=== PATIENT | female | born 1950 | race Caucasian/White ===

== ENCOUNTER → 2016-10-26 | Outpatient (CLI) | payer MEDICARE, OTHER ==
[~2016-10-26] MED LIST: ASPI-983 PO; ATOR10TA66 PO; CARV3.12 PO; CHOL10007 PO; GUAI5SYR PO; HYDR-3454 PO; IPRA3AMP IH; KRIL1CAP18 PO; LEVO25TA5 PO; OMEG-141 PO; PANT40TA2 PO; TICA90TA PO
--- NOTE | 2016-10-27 12:31 | ECHOCARDIOGRAPHY REPORT ---
DATE OF SERVICE: 10/26/2016 PROCEDURE: 2D Echocardiogram MEASUREMENT: LVID end diastolic 4.7, IVS thickness 0.8, LVPW thickness 0.9, left atrial diameter 2.6. Ejection fraction 50%. FINDINGS: 1. Technical quality is good. 2. The left ventricle is normal in size with subtle hypokinesia noted at the mid to apical anterior septum. Systolic function is preserved. Estimated ejection fraction 50%, slight improvement compared to the study of 2015, diastolic dysfunction is suggested by Doppler. 3. The left atrium is normal in size. No clot or thrombus were seen within the left atrium. 4. The right atrium and right ventricle are normal in size. No clot or thrombus were seen within the right side. 5. Mitral valve is normal in morphology with mild mitral regurgitation noted by color Doppler flow. No mitral valve prolapse. No mitral valve stenosis. 6. Aortic valve is trileaflet with normal opening and closing pattern, no significant aortic stenosis or regurgitation was seen. 7. Tricuspid valve is normal in morphology with mild tricuspid regurgitation noted by color Doppler flow. Doppler across the tricuspid valve estimated pulmonary artery pressure of 5+ right atrial pressure. 8. Pulmonic valve is functioning normally. 9. No pericardial effusion. IN CONCLUSION: 1. Normal left ventricular size with subtle hypokinesia at the mid to apical anterior septum, systolic function is preserved. Estimated ejection fraction 50%, diastolic dysfunction is suggested by Doppler, slight improvement compared to the study of 2015. 2. Mild mitral and tricuspid regurgitation. 3. Estimated pulmonary artery pressure of 10 to 15 mmHg. Job ID: [id number] DocumentID: [id number] Dictated Date: 10/27/2016 08:02:12 [employer] Date: 10/27/2016 08:54:42 Dictated By: PHAN MALONE MD
== END ==
LOC: CARD 11:39
PROVIDERS: ATTEND Physician Assistant
DX: I25.10 Atherosclerotic heart disease of native coronary artery without angina pectoris (principal); I11.0 Hypertensive heart disease with heart failure; E78.2 Mixed hyperlipidemia; I50.1 Left ventricular failure, unspecified; I08.1 Rheumatic disorders of both mitral and tricuspid valves
CPT/HCPCS: 93306

== ENCOUNTER 2016-12-17 18:43 | Emergency (ER) | payer MEDICARE, OTHER ==
[~2016-12-17] VITALS: Ht 147.3 cm; Wt 78.0 kg
--- NOTE | 2016-12-17 20:37 | ED Back Pain ---
General Chief Complaint: Back Problems Stated Complaint: BACK/STOMACH/CHEST PAIN Nursing Triage Note: RIGHT FLANK PAIN RADIATING TO ABDOMEN SINCE 0430 12/17/16 Nursing Sepsis Screen: No Definite Risk Source of Information: Patient, RN Notes Reviewed Exam Limitations: No Limitations History of Present Illness Time Seen by Provider: 20:20 Initial Comments Patient presents c/ c/o right flank pain since 04:30. Awoke @ that time and noted it. It has been constant and radiates around to RLQ and epigastrium. Described as sharp and rates it 8/10. When asked it has ever had anything like this, she stated once c/ her gallbladder and once c/ her ID. (+) nausea, but no vomiting. Thought it could be constipation and took a stool softner and had small BM s/ any changes in pain. No known fever. Location: Other (see above) Timing/Duration: 12-24 Hours Severity: Moderate Pain/Injury Location: Back (right flank) Radiation: Other (RUQ/Epigastric area) Method of Injury: Unknown Modifying Factors: Improves With Other (nothing) Associated Symptoms: denies symptoms Allergies and Home Medications Allergies Coded Allergies: Sulfa (Sulfonamide Antibiotics) (Verified Allergy, Unknown, 02/27/15) erythromycin base (Unverified Allergy, Unknown, 09/24/15) nitrous oxide (Unverified Allergy, Unknown, 09/24/15) procaine (Unverified Allergy, Unknown, 09/24/15) Home Medications Aspirin 81 Mg Tablet.dr, 81 MG PO DAILY, (Reported) Atorvastatin Calcium 10 Mg Tablet, 10 MG PO HS, (Reported) Cholecalciferol (Vitamin D3) 1,000 Unit Capsule, 1,000 UNIT PO DAILY, (Reported) Ipratropium/Albuterol Sulfate 3 Ml Ampul.neb, 3 ML IH QID, (Reported) Levothyroxine Sodium 25 Mcg Tablet, 25 MCG PO DAILY, (Reported) Mentor-3/Dha/Epa/Fish Oil 1 Each Capsule, 1 CAP PO BID, (Reported) Pantoprazole Sodium 40 Mg Tablet.dr, 40 MG PO DAILY, (Reported) Ticagrelor 90 Mg Tablet, 90 MG PO BID, (Reported) Constitutional: see HPI Gastrointestinal: see HPI, abdominal pain (RUQ; epigastric), nausea : No Musculoskeletal: see HPI, back pain (right flank) All Other Systems Reviewed Negative Unless Noted: Yes (Negative excepted noted.) Past [id number]-Mmokxk Hx Patient Social History Alcohol Use: Denies Use Recreational Drug Use: No Smoking Status: Never a Smoker Former Smoker/When Quit: Feb 28, 2015 2nd Hand Smoke Exposure: No Recent Foreign Travel: No Contact w/Someone Who Travel: No Recent Infectious Disease Expo: No Recent Hopitalizations: No Immunizations Up To Date Tetanus Booster (TDap): Unknown Date of Pneumonia Vaccine: Feb 28, 2015 Date of Influenza Vaccine: Feb 28, 2015 Seasonal Allergies Seasonal Allergies: No Surgeries HX Surgeries: Yes (5 bypass) Surgeries: Cardiac, CABG, Coronary Stent, Gallbladder, Tubal Ligation Respiratory Hx Respiratory Disorders: Yes Respiratory Disorders: COPD Cardiovascular Hx Cardiac Disorders: Yes Cardiac Disorders: Coronary Artery Disease, Heart Attack, High Cholesterol Neurological Hx Neurological Disorders: No Neurological Disorders: Stroke Reproductive System : No Hx Reproductive Disorders: No [employer] History: Tubal Ligation, Menopausal Genitourinary Hx Genitourinary Disorders: No Gastrointestinal Hx Gastrointestinal Disorders: No Musculoskeletal Hx Musculoskeletal Disorders: No Endocrine Hx Endocrine Disorders: No HEENT HX ENT Disorders: No Cancer Hx Cancer: No Psychosocial Hx Psychiatric Problems: No Integumentary HX Skin/Integumentary Disorder: No Blood Transfusions Hx Blood Disorders: No Adverse Reaction to a Blood Tr: No Family Medical History Family Medial History: Cardiovascular disease 19 FATHER Physical Exam Vital Signs Vital Sign - Last 12Hours 12/17/16 19:52 Temp 98.9 Pulse 79 Resp 16 B/P (MAP) 145/68 Pulse Ox 97 O2 Delivery Room Air Capillary Refill : Less Than 3 Seconds General Appearance: WD/WN, Obese, Other (appears uncomfortable) Cardiovascular: Regular Rate, Rhythm Respiratory: No Respiratory Distress Gastrointestinal: Soft Back: CVA Tenderness (R) Neurologic/Psychiatric: Alert, Oriented x3, No Motor/Sensory Deficits, image consultant II- XII Norm as Tested Skin: Warm/Dry, No Rash Progress/Results/Core Measures Results/Orders Lab Results Laboratory Tests Test 12/17/16 20:25 12/17/16 20:48 Range/Units Urine Color YELLOW Urine Clarity CLEAR Urine pH 5 5-9 Urine Specific [place] 1.020 1.016-1.022 Urine Protein NEGATIVE NEGATIVE Urine Glucose (UA) NEGATIVE NEGATIVE Urine Ketones NEGATIVE NEGATIVE Urine Nitrite NEGATIVE NEGATIVE Urine Bilirubin NEGATIVE NEGATIVE Urine Urobilinogen NORMAL NORMAL MG/DL Urine Leukocyte Esterase NEGATIVE NEGATIVE Urine RBC (Auto) 4+ H NEGATIVE Urine RBC 0-2 /HPF Urine WBC 2-5 /HPF Urine Squamous Epithelial Cells 25-50 H /HPF Urine Renal Epithelial Cells NONE /HPF Urine Crystals NONE /LPF Urine Bacteria FEW H /HPF Urine Casts PRESENT /LPF Urine Hyaline Casts RARE /LPF Urine Mucus NEGATIVE /LPF Urine Culture Indicated NO White Blood Count 9.7 4.3-11.0 10^3/uL Red Blood Count 4.08 L 4.35-5.85 10^6/uL Hemoglobin 12.1 11.5-16.0 G/DL Hematocrit 38 35-52 % Mean Corpuscular Volume 93 80-99 FL Mean Corpuscular Hemoglobin 30 25-34 PG Mean Corpuscular Hemoglobin Concent 32 32-36 G/DL Red Cell Distribution Width 13.7 10.0-14.5 % Platelet Count 349 130-400 10^3/uL Mean Platelet Volume 9.6 7.4-10.4 FL Neutrophils (%) (Auto) 61 42-75 % Lymphocytes (%) (Auto) 30 12-44 % Monocytes (%) (Auto) 7 0-12 % Eosinophils (%) (Auto) 3 0-10 % Basophils (%) (Auto) 0 0-10 % Neutrophils # (Auto) 5.9 1.8-7.8 X 10^3 Lymphocytes # (Auto) 2.9 1.0-4.0 X 10^3 Monocytes # (Auto) 0.7 0.0-1.0 X 10^3 Eosinophils # (Auto) 0.3 0.0-0.3 10^3/uL Basophils # (Auto) 0.0 0.0-0.1 10^3/uL Sodium Level 139 135-145 MMOL/L Potassium Level 4.0 3.6-5.0 MMOL/L Chloride Level 107 98-107 MMOL/L Carbon Dioxide Level 20 L 21-32 MMOL/L Anion Gap 12 5-14 MMOL/L Blood Urea Nitrogen 19 H 7-18 MG/DL Creatinine 1.02 0.60-1.30 MG/DL Estimat Glomerular Filtration Rate 54 BUN/Creatinine Ratio 19 Glucose Level 99 70-105 MG/DL Calcium Level 9.5 8.5-10.1 MG/DL Magnesium Level 2.0 1.8-2.4 MG/DL Total Bilirubin 0.5 0.1-1.0 MG/DL Aspartate Amino Transf (AST/SGOT) 72 H 5-34 U/L Alanine Aminotransferase (ALT/SGPT) 19 0-55 U/L Alkaline Phosphatase 73 40-136 U/L Troponin I < 0.30 <0.30 NG/ML Total Protein 7.3 6.4-8.2 GM/DL Albumin 3.9 3.2-4.5 GM/DL Lipase 40 8-78 U/L My Orders Orders - YOHANA QUEVEDO DO Saline Lock/Iv-Start (12/17/16 20:36) Ekg Tracing (12/17/16 20:36) Cbc With Automated Diff (12/17/16 20:36) Comprehensive Metabolic Panel (12/17/16 20:36) Lipase (12/17/16 20:36) Magnesium (12/17/16 20:36) Troponin I (12/17/16 20:36) Ct Abd/Pelvis Wo(Kidney Stone) (12/17/16 21:29) Vital Signs/I&O Vital Sign - Last 12Hours 12/17/16 12/17/16 19:52 23:27 Temp 98.9 Pulse 79 83 Resp 16 18 B/P (MAP) 145/68 Pulse Ox 97 99 O2 Delivery Room Air Room Air Blood Pressure Mean: 93 ECG Initial ECG Impression Date: Dec 17, 2016 Initial ECG Impression Time: 20:50 Initial ECG Rate: 79 Initial ECG Rhythm: Normal Sinus Initial ECG Comparisson: Changed (Probable ASMITA; LAD) Departure Impression Impression: Primary Impression: Right flank pain of UDE Disposition: 01 HOME, SELF-CARE Condition: Stable Departure-Patient Inst. Decision time for Depature: 23:14 Referrals: YOHANA SULTANA DO (PCP/Family) Primary Care Physician Patient Instructions: Flank Pain (DC) Add. Discharge Instructions: All discharge instructions reviewed with patient and/or family. Voiced understanding. CAN TAKE 1000 mg OF TYLENOL EVERY 6 HOURS NEEDED FOR PAIN. RECOMMEND HAVING YOUR PCP RECHECK YOUR URINE FOR BLOOD. MAY NEED YOUR BLADDER SCOPED. YOHANA QUEVEDO DO Dec 17, 2016 20:37
[2016-12-17 20:45] LABS: BILIRUBIN,URINE NEGATIVE (NEGATIVE); KETONES,URINE NEGATIVE (NEGATIVE); LEUKOCYTE ESTERASE ,URINE NEGATIVE (NEGATIVE); NITRITE,URINE NEGATIVE (NEGATIVE); PH,URINE 5 (5-9); PROTEIN,URINE NEGATIVE (NEGATIVE); UROBILINOGEN,URINE NORMAL (NORMAL)
[2016-12-17 20:55] LABS: BASOPHILS % (AUTO) 0 % (0-10); EOSINOPHILS # (AUTO) 0.3 10^3/uL (0.0-0.3); EOSINOPHILS % (AUTO) 3 % (0-10); LYMPHOCYTES # (AUTO) 2.9 X 10^3 (1.0-4.0); LYMPHOCYTES % (AUTO) 30 % (12-44); MEAN CORPUSCULAR HEMOGLOBIN 30 PG (25-34); MEAN CORPUSCULAR HGB CONC 32 G/DL (32-36); MEAN CORPUSCULAR VOLUME 93 FL (80-99); MEAN PLATELET VOLUME 9.6 FL (7.4-10.4); MONOCYTES # (AUTO) 0.7 X 10^3 (0.0-1.0); MONOCYTES % (AUTO) 7 % (0-12); NEUTROPHILS # (AUTO) 5.9 X 10^3 (1.8-7.8); NEUTROPHILS % (AUTO) 61 % (42-75); PLATELET COUNT 349 10^3/uL (130-400); RED BLOOD COUNT 4.08 10^6/uL (4.35-5.85); RED CELL DISTRIBUTION WIDTH 13.7 % (10.0-14.5); WHITE BLOOD COUNT 9.7 10^3/uL (4.3-11.0)
[2016-12-17 21:01] LABS: HYALINE CASTS, URINE RARE /LPF; SQUAMOUS EPITHELIAL CELL,UR 25-50 /HPF
[2016-12-17 21:27] LABS: ALANINE AMINOTRANSFERASE 19 U/L (0-55); ALBUMIN 3.9 GM/DL (3.2-4.5); ANION GAP 12 MMOL/L (5-14); ASPARTATE AMINO TRANSFERASE 72 U/L (5-34); BILIRUBIN,TOTAL 0.5 MG/DL (0.1-1.0); BLOOD UREA NITROGEN 19 MG/DL (7-18); BUN/CREATININE RATIO 19; CALCIUM 9.5 MG/DL (8.5-10.1); CARBON DIOXIDE 20 MMOL/L (21-32); CHLORIDE 107 MMOL/L (98-107); CREATININE SERUM 1.02 MG/DL (0.60-1.30); GFR ESTIMATED 54; GLUCOSE 99 MG/DL (70-105); LIPASE 40 U/L (8-78); SODIUM 139 MMOL/L (135-145); TOTAL PROTEIN 7.3 GM/DL (6.4-8.2)
[2016-12-17 21:29] LABS: TROPONIN I < 0.30 NG/ML (<0.30)
[2016-12-17 23:27] VITALS: BP 136/70
--- NOTE | 2016-12-18 08:06 | Diagnostic Imaging Report ---
PROCEDURE: CT urinary tract, rule out kidney stone. TECHNIQUE: Multiple contiguous axial images were obtained through the abdomen and pelvis without the use of intravenous contrast. INDICATION: Right posterior lower abdominal pain with radiation to the anterior aspect of the abdomen EXAMINATION: CT abdomen/ pelvis 12/17/2016. COMPARISON: None. FINDINGS: The nonopacified abdominal viscera demonstrate no evidence for acute disease within the liver or spleen. There is evidence of previous cholecystectomy. The pancreas and adrenal glands appear grossly unremarkable. No hydronephrosis is seen on either side. No stones appreciated in the kidneys with hyperdensities bilaterally likely vascular. No urolithiasis is appreciated. The appendix is unremarkable without surrounding inflammation. Findings of mild constipation noted throughout the colon with no inflammatory change noted about the bowel loops. There is no free fluid or air in the abdomen or pelvis. There is no lymphadenopathy. Diffuse atherosclerotic disease is seen. There is an anterior abdominal wall hernia which contains fat only. Osseous structures demonstrate no acute disease. Diffuse degenerative findings throughout the lumbar spine are noted with areas of central stenosis some of which appear severe. Lung bases demonstrate no acute findings with patchy airspace opacity in the peripheral right middle lobe likely mild atelectasis. IMPRESSION: No acute process in the abdomen or pelvis with incidental findings as described above. Findings agree with the preliminary report. Examination somewhat limited by the lack of IV contrast. Dictated by: Dictated on workstation # [id number]
--- OUTSIDE RECORDS SUMMARY | 2016-12-19 16:16 | XMS REPORT | Continuity of Care Document ---
Author Author [facility] Organization [facility] Address Unknown Phone Unavailable Allergies Active Description Code Type Severity Reaction Onset Reported/Identified Relationship to Patient Clinical Status Yes Sulfa (Sulfonamide Antibiotics) [id number] Drug Allergy Unknown N/A 02/27/2015 Yes erythromycin base [id number] Drug Allergy Unknown N/A 09/24/2015 Yes nitrous oxide [id number] Drug Allergy Unknown N/A 09/24/2015 Yes procaine [id number] Drug Allergy Unknown N/A 09/24/2015 Medications Problems Date Dx Coded Attending Type Code Diagnosis Diagnosed By 01/01/2015 AMOR SULTANA SPECTRAL SCIENTIST Ot 305.1 01/01/2015 AMOR SULTANA SPECTRAL SCIENTIST Ot 786.2 01/25/2015 AMOR SULTANA SPECTRAL SCIENTIST Ot 305.1 01/25/2015 AMOR SULTANA SPECTRAL SCIENTIST Ot 786.2 02/28/2015 PHAN MALONE MD Ot 272.4 HYPERLIPIDEMIA NEC/NOS 02/28/2015 PHAN MALONE MD Ot 305.1 TOBACCO USE DISORDER 02/28/2015 PHAN MALONE MD Ot 401.9 HYPERTENSION NOS 02/28/2015 PHAN MALONE MD Ot 410.71 AC MYOCARDIAL INFARCT,SUBENDO INFARCT,IN 02/28/2015 PHAN MALONE MD Ot 414.01 CORONARY ATHEROSCLEROSIS OF LIME CORON 02/28/2015 PHAN MALONE MD Ot 427.31 ATRIAL FIBRILLATION 02/28/2015 PHAN MALONE MD Ot V17.3 FAM HX-ISCHEM HEART DIS 07/23/2015 Ot 611.89 07/23/2015 Ot V76.12 07/23/2015 Ot 793.80 07/23/2015 Ot 610.2 07/23/2015 Ot 610.3 07/23/2015 Ot 610.4 07/23/2015 Ot 793.81 07/23/2015 Ot 793.81 07/23/2015 Ot V15.89 07/23/2015 Ot V67.09 07/23/2015 Ot V76.12 07/23/2015 KENYON BARTON MD Kameron Ot 793.82 07/23/2015 KENYON BARTON MD Kameron Ot V76.12 07/23/2015 MICK GLOVER KENYON Kameron Ot 793.80 07/23/2015 YOHANA SULTANA DO Ot 305.1 07/23/2015 YOHANA SULTANA DO Ot 786.2 07/23/2015 KAYY AMORPAULINA HAIRSTON Ot 305.1 07/23/2015 KAYY AMORLOY HAIRSTON Ot 786.2 07/23/2015 YOHANA SULTANA DO Ot D64.9 07/23/2015 YOHANA SULTANA DO Ot Z95.1 07/28/2015 YOHANA SULTANA DO Ot D64.9 07/28/2015 YOHANA SULTANA DO Ot Z95.1 07/29/2015 PHAN MALONE MD Ot E78.2 07/29/2015 HPAN MALONE MD Ot I10 07/29/2015 PHAN MALONE MD, Ot I25.10 07/29/2015 PHAN MALONE MD Ot I50.9 08/12/2015 PHAN MALONE MD Ot E78.5 HYPERLIPIDEMIA, UNSPECIFIED 08/12/2015 PHAN MALONE MD Ot I10 ESSENTIAL (PRIMARY) HYPERTENSION 08/12/2015 PHAN MALONE MD Ot I25.10 ATHSCL HEART DISEASE OF L[place] CORONARY 08/12/2015 PHAN MALONE MD, Ot 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 08/12/2015 PHAN MALONE MD Ot I25.84 CORONARY ATHEROSCLEROSIS DUE TO CALCIFIE 08/12/2015 PHAN MALONE MD Ot I48.0 PAROXYSMAL ATRIAL FIBRILLATION 08/12/2015 PHAN MALONE MD Ot R94.39 ABNORMAL RESULT OF OTHER CARDIOVASCULAR 08/12/2015 PHAN MALONE MD Ot Z79.899 OTHER PAPER TUBE GRADER (CURRENT) DRUG THERAPY 08/12/2015 PHAN MALONE MD, Ot Z87.891 PERSONAL HISTORY OF NICOTINE DEPENDENCE 08/12/2015 PHAN MALONE MD Ot Z95.1 PRESENCE OF AORTOCORONARY BYPASS GRAFT 08/13/2015 PHAN MALONE MD Ot E78.2 08/13/2015 PHAN MALONE MD Ot I10 08/13/2015 PHAN MALONE MD Ot I25.10 08/13/2015 PHAN MALONE MD Ot I50.9 08/23/2015 PHAN MALONE MD Ot E78.5 08/23/2015 PHAN MALONE MD Ot I10 08/23/2015 PHAN MALONE MD Ot I25.10 08/23/2015 PHAN MALONE MD Ot I25.82 08/23/2015 PHAN MALONE MD Ot I25.84 08/23/2015 PHAN MALONE MD Ot I48.0 08/23/2015 PHAN MALONE MD Ot R94.39 08/23/2015 PHAN MALONE MD Ot Z79.899 08/23/2015 PHAN MALONE MD Ot Z87.891 08/23/2015 PHAN MALONE MD Ot Z95.1 08/23/2015 PHAN MALONE MD Ot E78.2 08/23/2015 PHAN MALONE MD Ot I10 08/23/2015 PHAN MALONE MD Ot I25.10 08/23/2015 PHAN MALONE MD Ot I50.9 08/31/2015 PHAN MALONE MD Ot E78.2 08/31/2015 PHAN MALONE MD Ot I10 08/31/2015 PHAN MALONE MD Ot I25.10 08/31/2015 PHAN MALONE MD Ot I50.9 08/31/2015 PHAN MALONE MD Ot E78.2 08/31/2015 PHAN MALONE MD Ot I10 08/31/2015 PHAN MALONE MD Ot I25.10 08/31/2015 PHAN MALONE MD Ot I50.9 09/15/2015 PHAN MALONE MD Ot E78.5 HYPERLIPIDEMIA, UNSPECIFIED 09/15/2015 PHAN MALONE MD Ot I10 ESSENTIAL (PRIMARY) HYPERTENSION 09/15/2015 PHAN MALONE MD Ot I25.10 ATHSCL HEART DISEASE OF L[place] CORONARY 09/15/2015 PHAN MALONE MD Ot I25.2 OLD MYOCARDIAL INFARCTION 09/15/2015 PHAN MALONE MD Ot I48.0 PAROXYSMAL ATRIAL FIBRILLATION 09/15/2015 PHAN MALONE MD Ot Z79.899 OTHER PAPER TUBE GRADER (CURRENT) DRUG THERAPY 09/15/2015 PHAN MALONE MD Ot Z82.49 FAMILY HX OF ISCHEM HEART DIS AND OTH DI 09/15/2015 PHAN MALONE MD Ot Z87.891 PERSONAL HISTORY OF NICOTINE DEPENDENCE 09/15/2015 PHAN MALONE MD Ot Z95.1 PRESENCE OF AORTOCORONARY BYPASS GRAFT 09/24/2015 Ot 611.89 OTHER SPECIFIED DISORDERS OF BREAST 09/24/2015 Ot V76.12 OTH SCREEN MAMMO-MALIGN NEOPLASM OF BRY 09/24/2015 Ot 793.80 UNSPEC ABNORMAL MAMMOGRAM 09/24/2015 Ot 610.2 FIBROADENOSIS OF BREAST 09/24/2015 Ot 610.3 FIBROSCLEROSIS OF BREAST 09/24/2015 Ot 610.4 MAMMARY DUCT ECTASIA 09/24/2015 Ot 793.81 MAMMOGRAPHIC MICROCLACIFICATION 09/24/2015 Ot 793.81 MAMMOGRAPHIC MICROCLACIFICATION 09/24/2015 Ot V15.89 HX-HEALTH HAZARDS NEC 09/24/2015 Ot V67.09 SURGERY FOLLOW-UP, OTHER SURGERY 09/24/2015 Ot V76.12 OTH SCREEN MAMMO-MALIGN NEOPLASM OF BRY 09/24/2015 KENYON BARTON MD Ot 793.82 INCONCLUSIVE MAMMOGRAM 09/24/2015 KENYON BARTON MD Ot V76.12 OTH SCREEN MAMMO-MALIGN NEOPLASM OF BRY 09/24/2015 KENYON BARTON MD Ot 793.80 UNSPEC ABNORMAL MAMMOGRAM 09/24/2015 YOHANA SULTANA DO Ot 305.1 TOBACCO USE DISORDER 09/24/2015 YOHANA SULTANA DO Ot 786.2 COUGH 09/24/2015 AMOR SULTANA Ot 305.1 TOBACCO USE DISORDER 09/24/2015 AMOR SULTANA Ot 786.2 COUGH 09/24/2015 YOHANA SULTANA DO Ot D64.9 ANEMIA, UNSPECIFIED 09/24/2015 YOHANA SULTANA DO Ot Z95.1 PRESENCE OF AORTOCORONARY BYPASS GRAFT 09/24/2015 PHAN MALONE MD Ot E78.2 MIXED HYPERLIPIDEMIA 09/24/2015 PHAN MALONE MD Ot I10 ESSENTIAL (PRIMARY) HYPERTENSION 09/24/2015 PHAN MALONE MD Ot I25.10 ATHSCL HEART DISEASE OF L[place] CORONARY 09/24/2015 PHAN MALONE MD Ot I50.9 HEART FAILURE, UNSPECIFIED 09/24/2015 PHAN MALONE MD Ot E78.2 MIXED HYPERLIPIDEMIA 09/24/2015 PHAN MALONE MD Ot I10 ESSENTIAL (PRIMARY) HYPERTENSION 09/24/2015 PHAN MALONE MD Ot I25.10 ATHSCL HEART DISEASE OF L[place] CORONARY 09/24/2015 PHAN MALONE MD Ot I50.9 HEART FAILURE, UNSPECIFIED 09/25/2015 FRIDA LEACH MD Ot E78.5 HYPERLIPIDEMIA, UNSPECIFIED 09/25/2015 FRIDA LEACH MD Ot I10 ESSENTIAL (PRIMARY) HYPERTENSION 09/25/2015 FRIDA LEACH MD Ot I25.10 ATHSCL HEART DISEASE OF [place] CORONARY 09/25/2015 FRIDA LEACH MD Ot K80.10 CALCULUS OF GALLBLADDER W CHRONIC CHOLEC 09/25/2015 FRIDA LEACH MD Ot Z79.02 NURSING HOME (CURRENT) USE OF ANTITHROMBOTI 09/25/2015 FRIDA LEACH MD Ot Z87.891 PERSONAL HISTORY OF NICOTINE DEPENDENCE 09/25/2015 FRIDA LEACH MD Ot Z95.1 PRESENCE OF AORTOCORONARY BYPASS GRAFT 09/30/2015 FRIDA LEACH MD Ot E78.5 HYPERLIPIDEMIA, UNSPECIFIED 09/30/2015 FRIDA LEACH MD Ot I10 ESSENTIAL (PRIMARY) HYPERTENSION 09/30/2015 FRIDA LEACH MD Ot I25.10 ATHSCL HEART DISEASE OF L[place] CORONARY 09/30/2015 FRIDA LEACH MD Ot K80.10 CALCULUS OF GALLBLADDER W CHRONIC CHOLEC 09/30/2015 FRIDA LEACH MD Ot Z79.02 NURSING HOME (CURRENT) USE OF ANTITHROMBOTI 09/30/2015 HAYLEE GLOVER, FRIDA Zamorano Ot Z87.891 PERSONAL HISTORY OF NICOTINE DEPENDENCE 09/30/2015 HAYLEE GLOVER, FRIDA Zamorano Ot Z95.1 PRESENCE OF AORTOCORONARY BYPASS GRAFT 10/15/2015 PHAN MALONE MD Ot E78.5 HYPERLIPIDEMIA, UNSPECIFIED 10/15/2015 PHAN MALONE MD Ot I10 ESSENTIAL (PRIMARY) HYPERTENSION 10/15/2015 PHAN MALONE MD Ot I25.10 ATHSCL HEART DISEASE OF L[place] CORONARY 10/15/2015 PHAN MALONE MD Ot 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 10/15/2015 PHAN MALONE MD Ot I25.84 CORONARY ATHEROSCLEROSIS DUE TO CALCIFIE 10/15/2015 PHAN MALONE MD Ot I48.0 PAROXYSMAL ATRIAL FIBRILLATION 10/15/2015 PHAN MALONE MD Ot R94.39 ABNORMAL RESULT OF OTHER CARDIOVASCULAR 10/15/2015 PHAN MALONE MD Ot Z79.899 OTHER PAPER TUBE GRADER (CURRENT) DRUG THERAPY 10/15/2015 PHAN MALONE MD, Ot Z87.891 PERSONAL HISTORY OF NICOTINE DEPENDENCE 10/15/2015 PHAN MALONE MD Ot Z95.1 PRESENCE OF AORTOCORONARY BYPASS GRAFT 01/12/2016 Ot 611.89 OTHER SPECIFIED DISORDERS OF BREAST 01/12/2016 Ot V76.12 OTH SCREEN MAMMO-MALIGN NEOPLASM OF BRY 01/12/2016 Ot 793.80 UNSPEC ABNORMAL MAMMOGRAM 01/12/2016 Ot 610.2 FIBROADENOSIS OF BREAST 01/12/2016 Ot 610.3 FIBROSCLEROSIS OF BREAST 01/12/2016 Ot 610.4 MAMMARY DUCT ECTASIA 01/12/2016 Ot 793.81 MAMMOGRAPHIC MICROCLACIFICATION 01/12/2016 Ot 793.81 MAMMOGRAPHIC MICROCLACIFICATION 01/12/2016 Ot V15.89 HX-HEALTH HAZARDS NEC 01/12/2016 Ot V67.09 SURGERY FOLLOW-UP, OTHER SURGERY 01/12/2016 Ot V76.12 OTH SCREEN MAMMO-MALIGN NEOPLASM OF BRY 01/12/2016 KENYON BARTON MD Ot 793.82 INCONCLUSIVE MAMMOGRAM 01/12/2016 KENYON BARTON MD Ot V76.12 OT SCREEN MAMMO-MALIGN NEOPLASM OF BRY 01/12/2016 MICK GLOVER, KENYON Melo Ot 793.80 UNSPEC ABNORMAL MAMMOGRAM 01/12/2016 YOHANA SULTANA DO Ot 305.1 TOBACCO USE DISORDER 01/12/2016 YOHANA SULTANA DO Ot 786.2 COUGH 01/12/2016 KAYYAMOR Reynaldo HAIRSTON Ot 305.1 TOBACCO USE DISORDER 01/12/2016 KAYY AMOR Reynaldo HAIRSTON Ot 786.2 COUGH 01/12/2016 YOHANA SULTANA DO Ot D64.9 ANEMIA, UNSPECIFIED 01/12/2016 YOHANA SULTANA DO Ot Z95.1 PRESENCE OF AORTOCORONARY BYPASS GRAFT 01/12/2016 PHAN MALONE MD Ot E78.2 MIXED HYPERLIPIDEMIA 01/12/2016 PHAN MALONE MD Ot I10 ESSENTIAL (PRIMARY) HYPERTENSION 01/12/2016 PHAN MALONE MD Ot I25.10 ATHSCL HEART DISEASE OF LIME CORONARY 01/12/2016 PHAN MALONE MD Ot I50.9 HEART FAILURE, UNSPECIFIED 01/12/2016 PHAN MALONE MD Ot E78.2 MIXED HYPERLIPIDEMIA 01/12/2016 PHAN MALONE MD Ot I10 ESSENTIAL (PRIMARY) HYPERTENSION 01/12/2016 PHAN MALONE MD Ot I25.10 ATHSCL HEART DISEASE OF L[place] CORONARY 01/12/2016 PHAN MALONE MD Ot I50.9 HEART FAILURE, UNSPECIFIED 01/12/2016 RAE DAY DO Ot Z12.31 ENCNTR SCREEN MAMMOGRAM FOR MALIGNANT NE 01/12/2016 RAE DAY DO Ot Z12.31 ENCNTR SCREEN MAMMOGRAM FOR MALIGNANT NE 01/13/2016 RAE DAY DO Ot Z12.31 ENCNTR SCREEN MAMMOGRAM FOR MALIGNANT NE 01/13/2016 RAE DAY DO Ot Z95.1 PRESENCE OF AORTOCORONARY BYPASS GRAFT 01/13/2016 RAE DAY DO Ot Z12.31 ENCNTR SCREEN MAMMOGRAM FOR MALIGNANT NE 01/13/2016 RAE DAY DO Ot Z95.1 PRESENCE OF AORTOCORONARY BYPASS GRAFT 01/13/2016 DAY DO, RAE C Ot Z12.31 ENCNTR SCREEN MAMMOGRAM FOR MALIGNANT NE 01/13/2016 BARB DO, RAE C Ot Z95.1 PRESENCE OF AORTOCORONARY BYPASS GRAFT 01/18/2016 BARB DO, RAE C Ot Z12.31 ENCNTR SCREEN MAMMOGRAM FOR MALIGNANT NE 01/18/2016 BARB DO, RAE C Ot Z95.1 PRESENCE OF AORTOCORONARY BYPASS GRAFT 02/04/2016 DAY DO, RAE C Ot Z12.31 ENCNTR SCREEN MAMMOGRAM FOR MALIGNANT NE 02/04/2016 BARB DO, RAE C Ot Z95.1 PRESENCE OF AORTOCORONARY BYPASS GRAFT 10/26/2016 Ot V76.12 OTH SCREEN MAMMO-MALIGN NEOPLASM OF BRY 10/26/2016 KENYON BARTON MD Ot 793.82 INCONCLUSIVE MAMMOGRAM 10/26/2016 KENYON BARTON MD, Ot V76.12 OTH SCREEN MAMMO-MALIGN NEOPLASM OF BRY 10/26/2016 KENYON BARTON MD Ot 793.80 UNSPEC ABNORMAL MAMMOGRAM 10/26/2016 YOHANA SULTANA DO Ot 305.1 TOBACCO USE DISORDER 10/26/2016 YOHANA SULTANA DO Ot 786.2 COUGH 10/26/2016 AMOR SULTANA SPECTRAL SCIENTIST Ot 305.1 TOBACCO USE DISORDER 10/26/2016 AMOR SULTANA SPECTRAL SCIENTIST Ot 786.2 COUGH 10/26/2016 YOHANA SULTANA DO Ot D64.9 ANEMIA, UNSPECIFIED 10/26/2016 YOHANA SULTANA DO Ot Z95.1 PRESENCE OF AORTOCORONARY BYPASS GRAFT 10/26/2016 PHAN MALONE MD Ot E78.2 MIXED HYPERLIPIDEMIA 10/26/2016 PHAN MALONE MD Ot I10 ESSENTIAL (PRIMARY) HYPERTENSION 10/26/2016 PHAN MALONE MD Ot I25.10 ATHSCL HEART DISEASE OF LIME CORONARY 10/26/2016 PHAN MALONE MD Ot I50.9 HEART FAILURE, UNSPECIFIED 10/26/2016 PHAN MALONE MD Ot E78.2 MIXED HYPERLIPIDEMIA 10/26/2016 PHAN MALONE MD Ot I10 ESSENTIAL (PRIMARY) HYPERTENSION 10/26/2016 PHAN MALONE MD Ot I25.10 ATHSCL HEART DISEASE OF LIME CORONARY 10/26/2016 PHAN MALONE MD Ot I50.9 HEART FAILURE, UNSPECIFIED 10/26/2016 RAE DAY DO Ot Z12.31 ENCNTR SCREEN MAMMOGRAM FOR MALIGNANT NE 10/26/2016 RAE DAY DO Ot Z95.1 PRESENCE OF AORTOCORONARY BYPASS GRAFT 10/27/2016 YANET CARRASCO Ot E78.2 MIXED HYPERLIPIDEMIA 10/27/2016 YANET CARRASCO Ot I08.1 RHEUMATIC DISORDERS OF BOTH MITRAL AND T 10/27/2016 YANET CARRASCO Ot I11.0 HYPERTENSIVE HEART DISEASE WITH HEART FA 10/27/2016 YANET CARRASCO Ot I25.10 ATHSCL HEART DISEASE OF L[place] CORONARY 10/27/2016 YANET CARRASCO Ot I50.1 LEFT VENTRICULAR FAILURE 11/16/2016 YANET CARRASCO Ot E78.2 MIXED HYPERLIPIDEMIA 11/16/2016 YAENT CARRASCO Ot I08.1 RHEUMATIC DISORDERS OF BOTH MITRAL AND T 11/16/2016 YANET CARRASCO Ot I11.0 HYPERTENSIVE HEART DISEASE WITH HEART FA 11/16/2016 YANET CARRASCO Ot I25.10 ATHSCL HEART DISEASE OF [place] CORONARY 11/16/2016 YANET CARRASCO Ot I50.1 LEFT VENTRICULAR FAILURE Procedures Code Description Performed By Performed On 37.22 LEFT HEART CARDIAC CATH 02/28/2015 37.61 PULSATION BALLOON IMPLAN 02/28/2015 88.53 LT HEART ANGIOCARDIOGRAM 02/28/2015 88.56 CORONAR ARTERIOGR-2 CATH 02/28/2015 Results Encounters ACCT No. Visit Date/Time Discharge Status Pt. Type Provider Facility Loc./Unit Complaint [id number] 09/24/2015 05:10:00 2015 14:30:00 DIS Outpatient HAYLEE GLOVER, FRIDA [facility] ACUTE CHOLECYSTITIS,CHOLELITHIASIS [id number] 09/15/2015 10:01:00 2015 11:36:00 DIS Outpatient PHAN MALONE MD [facility] CATH AFIB CP [id number] 08/11/2015 06:59:00 2015 09:35:00 DIS Outpatient PHAN MALONE MD [facility] CAD,HTN,ABNORMAL STRESS TEST [id number] 02/27/2015 23:36:00 2014 00:35:00 DIS Inpatient PHAN MALONE MD [facility] ICU CP [id number] 12/11/2014 11:52:00 2014 23:59:59 CLS Outpatient AMOR SULTANA [facility] RAD COUGH,SMOKER [id number] 12/15/2013 16:59:00 2013 23:59:59 CLS Outpatient YOHANA SULTANA DO [facility] RAD CHRONIC COUGH [id number] 11/13/2012 12:53:00 2012 23:59:59 CLS Outpatient KENYON BARTON MD [facility] RAD ABN MAMMO RT BREAST [id number] 10/29/2012 08:58:00 2012 23:59:59 CLS Outpatient KENYON BARTON MD [facility] RAD SCREENING [id number] 10/26/2016 11:39:00 ACT Outpatient YANET PRAKASH [facility] CARD CAD,CHF [id number] 01/12/2016 08:47:00 ACT Outpatient RAE DAY DO [facility] RAD SCREENING [id number] 07/28/2015 07:24:00 ACT Outpatient PHAN MALONE MD [facility] CARD CAD,HTN,CHF,MIXED HLP [id number] 07/23/2015 11:40:00 ACT Outpatient PHAN MALONE MD [facility] CARD CAD,HTN,CHF,MIXED HLP [id number] 07/06/2015 11:39:00 ACT Outpatient YOHANA SULTANA DO [facility] HH ANEMIA, S/P CABG [id number] 10/18/2011 07:39:00 Document Registration [id number] 05/01/2011 13:41:00 Document Registration [id number] 11/01/2010 11:15:00 Document Registration [id number] 10/11/2010 13:57:00 Document Registration [id number] 10/06/2010 08:54:00 Document Registration
== END 2016-12-17 23:27 | disposition home or self-care (01) ==
LOC: EDUNIT# 18:43 → ER 18:44
DX: R10.9 Unspecified abdominal pain (principal); I25.10 Atherosclerotic heart disease of native coronary artery without angina pectoris; I25.2 Old myocardial infarction; E78.00 Pure hypercholesterolemia, unspecified; Z95.1 Presence of aortocoronary bypass graft; Z95.5 Presence of coronary angioplasty implant and graft; Z79.82 Long term (current) use of aspirin; Z86.73 Personal history of transient ischemic attack (TIA), and cerebral infarction without residual deficits; Z98.51 Tubal ligation status; Z90.49 Acquired absence of other specified parts of digestive tract
CPT/HCPCS: 36415; 74176; 80053; 81000; 83690; 83735; 84484; 85025; 93005

== ENCOUNTER 2017-01-07 08:21 | Emergency (ER) | payer MEDICARE, OTHER ==
[~2017-01-07] VITALS: Ht 149.9 cm; Wt 77.1 kg
--- NOTE | 2017-01-07 09:02 | ED EENT ---
History of Present Illness General Chief Complaint: Ear Problems Stated Complaint: R EAR PAIN, SWELLING Nursing Triage Note: AMBULATED TO ROOM WITH COMPLAINTS OF RIGHT EAR PAIN X3 DAYS. Source: patient Exam Limitations: no limitations History of Present Illness Time seen by provider: 08:53 Initial Comments Patient presents to ER by private conveyance with chief complaint of some nausea vomiting or 4 days ago earlier this week which she associated with having a stomach bug. It went away but now she is having for the past day and a half some pain without drainage in her right ear which is worse when she opens her jaw away. She has pain that radiates down her right jaw. She is not having any headaches fevers or chills or nausea in the past day or 2. She has no skin rash. 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 She is having tenderness in the ear canal she has stuck her finger but nothing else in the her ear at this time. She is not on any immunomodulators. Allergies and Home Medications Allergies Coded Allergies: Sulfa (Sulfonamide Antibiotics) (Verified Allergy, Unknown, 02/27/15) erythromycin base (Unverified Allergy, Unknown, 09/24/15) nitrous oxide (Unverified Allergy, Unknown, 09/24/15) procaine (Unverified Allergy, Unknown, 09/24/15) Home Medications Aspirin 81 Mg Tablet.dr, 81 MG PO DAILY, (Reported) Cholecalciferol (Vitamin D3) 1,000 Unit Capsule, 1,000 UNIT PO DAILY, (Reported) Levothyroxine Sodium 25 Mcg Tablet, 25 MCG PO DAILY, (Reported) [place]-3/Dha/Epa/Fish Oil 1 Each Capsule, 1 CAP PO BID, (Reported) Pantoprazole Sodium 40 Mg Tablet.dr, 40 MG PO DAILY, (Reported) Ticagrelor 90 Mg Tablet, 90 MG PO BID, (Reported) Review of Systems Constitutional: No chills, No diaphoresis, No dizziness, No fever, No malaise Eyes: Denies Blindness, Denies Blurred Vision, Denies Drainage Ears: See HPI, Denies Dizziness, Pain, Denies Tinnitus, Denies Bloody Discharge , Denies Clear Discharge, Denies Purulent Discharge, Denies Previous Injury Nose: denies clots, denies epistaxis, denies pain Mouth: denies loose teeth, denies pain Throat: denies pain, denies swelling, denies neck stiffness, denies hoarse Respiratory: cough (occasional), No short of breath Cardiovascular: No chest pain, No palpitations Gastrointestinal: No constipation, No diarrhea, No nausea, No vomiting Musculoskeletal: No back pain, joint pain (arthritis) Skin: No pruritus, No rash Neurological: Denies Headache, Denies Numbness, Denies Paresthesia Past Klkvryb-Fotrby-Lwwzhb Hx Patient Social History Alcohol Use: Denies Use Recreational Drug Use: No Smoking Status: Never a Smoker Former Smoker/When Quit: Feb 28, 2015 2nd Hand Smoke Exposure: No Recent Foreign Travel: No Contact w/Someone Who Travel: No Recent Infectious Disease Expo: No Recent Hopitalizations: No Immunizations Up To Date Tetanus Booster (TDap): Unknown Date of Pneumonia Vaccine: Feb 28, 2015 Date of Influenza Vaccine: Feb 28, 2015 Seasonal Allergies Seasonal Allergies: No Surgeries HX Surgeries: Yes (5 bypass) Surgeries: Cardiac, CABG, Coronary Stent, Gallbladder, Tubal Ligation Respiratory Hx Respiratory Disorders: Yes Respiratory Disorders: COPD Cardiovascular Hx Cardiac Disorders: Yes Cardiac Disorders: Coronary Artery Disease, Heart Attack, High Cholesterol Neurological Hx Neurological Disorders: No Neurological Disorders: Stroke Reproductive System Hx Reproductive Disorders: No 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 MAP History: Tubal Ligation, Menopausal Genitourinary Hx Genitourinary Disorders: No Gastrointestinal Hx Gastrointestinal Disorders: No Musculoskeletal Hx Musculoskeletal Disorders: No Endocrine Hx Endocrine Disorders: No HEENT HX ENT Disorders: No Cancer Hx Cancer: No Psychosocial Hx Psychiatric Problems: No Integumentary HX Skin/Integumentary Disorder: No Blood Transfusions Hx Blood Disorders: No Adverse Reaction to a Blood Tr: No Family Medical History Family Medial History: Cardiovascular disease 19 FATHER Physical Exam Vital Signs Vital Sign - Last 12Hours 01/07/17 08:30 Temp 97.4 Pulse 85 Resp 16 B/P (MAP) 145/69 Pulse Ox 97 General Appearance: WD/WN, mild distress Eyes: bilateral eye EOMI, bilateral eye PERRL, bilateral eye normal inspection Ears: right ear TM bulging, right ear TM dull, right ear TM red (sign of green mucoid effusion noted medially at the base of the right TM), right ear tenderness, left ear canal normal, bilateral ear auricle normal Nose: normal inspection, No active bleeding, No discharge Mouth/Throat: normal mouth inspection, pharynx normal Neck: non-tender, supple, normal inspection (no lymphadenopathy) Cardiovascular: regular rate, rhythm, no edema Respiratory: lungs clear, normal breath sounds Neurologic/Psychiatric: alert, oriented x 3 Progress/Results/Core Measures Results/Orders Vital Signs/I&O Vital Sign - Last 12Hours 01/07/17 08:30 Temp 97.4 Pulse 85 Resp 16 B/P (MAP) 145/69 Pulse Ox 97 Blood Pressure Mean: 94 Progress Note : Time: 09:11 Progress Note Patient has acute otitis media suppurative a on the right side. We have offered her narcotics which she has declined. She is not on a candidate for NSAIDs given her use of Brilinta for her heart and recent CABG. We have offered her a dose of steroids but she would refer not to start with steroids to help bring down the swelling and pain. Departure Impression Impression: Primary Impression: Otitis media with effusion Qualified Codes: H65.92 - Unspecified nonsuppurative otitis media, left ear Additional Impression: AOM (acute otitis media) Qualified Codes: H66.001 - Acute suppurative otitis media without spontaneous rupture of ear drum, right ear Disposition: 01 HOME, SELF-CARE Condition: Stable Departure-Patient Inst. Decision time for Depature: 09:09 Referrals: YOHANA MONET DO (PCP/Family) Primary Care Physician Patient Instructions: Ear Infections (Otitis Media) (DC) Add. Discharge Instructions: Make sure you are drinking plenty of fluids and use Tylenol 1000 g every 8 hours as needed for pain. You can also apply heat pack directly over the right ear. Do not place anything in the ear canal. If your pain worsens despite these therapies or you start having high fevers or nausea you can return to the ER or go to Dr. Monet. If you're not having improvement in 3-4 days on antibiotics you should also follow-up with your primary care physician and think about seeing an ear nose and throat doctor as necessary. He may need to change your antibiotics as well. All discharge instructions reviewed with patient and/or family. Voiced understanding. Scripts Amoxicillin/Potassium Clav (Augmentin 875-125 Tablet) 1 Each Tablet 1 EACH PO BID for 10 Days, #20 TAB 0 Refills Prov: TINY SIERRA 01/07/17 Copy Copies To 1: YOHANA MONET TITUS J Jan 07, 2017 09:02
[2017-01-07] MEDS ORDERED: AMOX-358 PO (09:11)
[2017-01-07 09:14] VITALS: BP 145/69
== END 2017-01-07 09:14 | disposition home or self-care (01) ==
LOC: EDUNIT# 08:21 → ER 08:22
DX: H65.191 Other acute nonsuppurative otitis media, right ear (principal); J44.9 Chronic obstructive pulmonary disease, unspecified; I25.10 Atherosclerotic heart disease of native coronary artery without angina pectoris; I25.2 Old myocardial infarction; E78.00 Pure hypercholesterolemia, unspecified; Z82.49 Family history of ischemic heart disease and other diseases of the circulatory system; Z86.73 Personal history of transient ischemic attack (TIA), and cerebral infarction without residual deficits; Z79.82 Long term (current) use of aspirin; Z95.5 Presence of coronary angioplasty implant and graft; Z95.1 Presence of aortocoronary bypass graft; Z98.51 Tubal ligation status
CPT/HCPCS: 99282

== ENCOUNTER → 2017-03-19 | Outpatient (CLI) | payer MEDICARE, OTHER ==
[~2017-03-19] MED LIST changes: +AMOX-358 PO
--- NOTE | 2017-03-20 09:04 | STRESS TEST ---
DATE OF SERVICE: 03/19/2017 EXERCISE STRESS ECHOCARDIOGRAM REPORT PROCEDURE: Exercise stress echocardiogram report. REFERRING PHYSICIAN: Dr. Monet. FINDINGS: Baseline heart rate is 80, baseline blood pressure 121/64, baseline EKG sinus rhythm with no ischemic changes. SUMMARY: The patient started exercising with a baseline heart rate, blood pressure and EKG mentioned above. She was able to exercise for only 2 minutes on standard Blaze protocol, achieving maximum heart rate of 123, which is 80% of maximum expected heart rate. The patient was unable to perform any further. Blood pressure was 160/72. EKG was showing occasional PVCs with no acute ischemic changes, nondiagnostic changes with [address] depression in II, III, aVF, V4, V5, V6. During recovery, heart rate and blood pressure returned to baseline. EKG returned to baseline. Echocardiographic images were acquired and reviewed after the use of contrast with Optison. Review of the images showed normal left ventricular size with normal contractility with no ischemic changes. CONCLUSION: 1. Poor exercise tolerance due to general deconditioning and severe shortness of breath, able to exercise for 1 minute 50 seconds on standard Blaze protocol, total of 3.2 METs, achieving 80% of maximum expected heart rate. 2. Nondiagnostic EKG changes with exercise returned to baseline during recovery. 3. Normal echocardiographic images at rest and with peak stress level with no ischemic changes. Job ID: [id number] DocumentID: [id number] Dictated Date: 03/19/2017 17:10:40 Object Oriented Developer Date: 03/19/2017 20:02:57 Dictated By: PHAN MALONE MD
== END ==
LOC: CARD 10:27
PROVIDERS: ATTEND Physician Assistant
DX: I25.10 Atherosclerotic heart disease of native coronary artery without angina pectoris (principal); I50.1 Left ventricular failure, unspecified

== ENCOUNTER 2017-07-10 22:12 | Emergency (ER) | payer MEDICARE, OTHER ==
[~2017-07-10] VITALS: Ht 149.9 cm; Wt 77.4 kg
[2017-07-10] MEDS ORDERED: RT-ALBUTEROL/IPRATROPIUM 3 ML (DUONEB) VIAL INH ONE (22:30)
--- NOTE | 2017-07-10 22:37 | ED Respiratory ---
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 Source: patient History of Present Illness Date Seen by Provider: Jul 10, 2017 Time Seen by Provider: 22:25 Initial Comments PT IS HERE FOR NEBULIZER TREATMENT PT HAS COPD, AND USES [facility] NEBULIZER TREATMENTS EVERY 4 HOURS, EVERY DAY. LAST TREATMENT WAS AT 1500 TODAY WHEN SHE TRIED TO USE HER NEBULIZER TONIGHT AT 2100, IT WOULD NOT TURN ON STATES SHE NEEDS A TREATMENT BEFORE SHE GOES TO BED WEARS HOME O2 AT NIGHT PT HAS NOT ATTEMPTED TO CONTACT THE COMPANY SHE ORDERED IT THROUGH--SAW IT ON A TV AD AND DR. SULTANA WROTE HER A PRESCRIPTION FOR IT. PCP: DR. SULTANA Allergies and Home Medications Allergies Coded Allergies: Sulfa (Sulfonamide Antibiotics) (Verified Allergy, Unknown, 02/27/15) erythromycin base (Unverified Allergy, Unknown, 09/24/15) nitrous oxide (Unverified Allergy, Unknown, 09/24/15) procaine (Unverified Allergy, Unknown, 09/24/15) Home Medications Amoxicillin/Potassium Clav 1 Each Tablet, 1 EACH PO BID for 10 Days, #20 Ref 0 Prescribed by: TINY SIERRA on 01/07/17 0911 Aspirin 81 Mg Tablet.dr, 81 MG PO DAILY, (Reported) Cholecalciferol (Vitamin D3) 1,000 Unit Capsule, 1,000 UNIT PO DAILY, (Reported) Levothyroxine Sodium 25 Mcg Tablet, 25 MCG PO DAILY, (Reported) [place]-3/Dha/Epa/Fish Oil 1 Each Capsule, 1 CAP PO BID, (Reported) Pantoprazole Sodium 40 Mg Tablet.dr, 40 MG PO DAILY, (Reported) Ticagrelor 90 Mg Tablet, 90 MG PO BID, (Reported) Constitutional: no symptoms reported EENTM: no symptoms reported Respiratory: see HPI, short of breath, wheezing Cardiovascular: no symptoms reported Gastrointestinal: no symptoms reported Musculoskeletal: no symptoms reported Skin: no symptoms reported Past Yuwsowd-Eoquin-Bzbmbq Hx Patient Social History Alcohol Use: Denies Use Recreational Drug Use: No Smoking Status: Former Smoker Type Used: Cigarettes 2nd Hand Smoke Exposure: No Recent Foreign Travel: No Contact w/Someone Who Travel: No Recent Infectious Disease Expo: No Recent Hopitalizations: No Immunizations Up To Date Tetanus Booster (TDap): Unknown Date of Pneumonia Vaccine: Feb 28, 2015 Date of Influenza Vaccine: Feb 28, 2015 Seasonal Allergies Seasonal Allergies: No Surgeries History of Surgeries: Yes (5 VESSEL CABG; CARDIAC CATH; FACIAL) Surgeries: Cardiac, CABG, Coronary Stent, Gallbladder, Tubal Ligation Respiratory History of Respiratory Disorde: Yes (O2 AT HS) Respiratory Disorders: COPD Currently Using CPAP: No Currently Using BIPAP: No Cardiovascular History of Cardiac Disorders: Yes (5 VESSEL CABG) Cardiac Disorders: Coronary Artery Disease, Heart Attack, High Cholesterol Neurological History of Neurological Disord: Yes Neurological Disorders: Stroke Reproductive System Hx Reproductive Disorders: No 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, 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9 Pulse 84 Resp 16 B/P (MAP) 144/92 (109) Pulse Ox 97 O2 Delivery Room Air Capillary Refill : Less Than 3 Seconds General Appearance: WD/WN, no apparent distress Respiratory: no respiratory distress, no accessory muscle use, wheezing, expiration Cardiovascular: regular rate, rhythm, no edema, no JVD, no murmur Gastrointestinal: soft Extremities: normal inspection, no pedal edema, normal capillary refill 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, no motor/sensory deficits, alert, normal mood/affect, oriented x 3 Skin: normal color, warm/dry Progress/Results/Core Measures Suspected Sepsis Recent Fever Within 48 Hours: No Infection Criteria Present: None New/Unexplained Altered Menta: No Sepsis Screen: No Definite Risk Sepsis Diagnosis: SIRS Temperature:97.9 Pulse: 84 Respiratory Rate: 16 Blood Pressure 144 /92 Mean: 109 Results/Orders My Orders Orders - CHRIS BULLOCK DO Albuterol/Ipra Inhalation Soln (Duoneb I (07/10/17 22:30) Rt Request For Service (07/10/17 22:25) Svn Sm Volume Nebulizer Rt-Rfs (07/10/17 22:25) Medications Given in ED Current Medications Medications Dose Ordered Sig/Kian Route Start Time Stop Time Status Last Admin Dose Admin Albuterol/ Ipratropium 3 ml ONCE ONCE INH 07/10/17 22:30 07/10/17 22:31 DC 07/10/17 22:35 3 ML Vital Signs/I&O Vital Sign - Last 12Hours 07/10/17 07/10/17 22:20 22:36 Temp 97.9 Pulse 84 Resp 16 B/P (MAP) 144/92 (109) Pulse Ox 97 97 O2 Delivery Room Air Room Air Capillary Refill : Less Than 3 Seconds Blood Pressure Mean: 109 Progress Note : Progress Note GIVEN NEB TREATMENT WITH DECREASED WHEEZING. Departure Impression Impression: Primary Impression: COPD (chronic obstructive pulmonary disease) Disposition: 01 HOME, SELF-CARE Condition: Improved Departure-Patient Inst. Referrals: YOHANA SULTANA DO (PCP/Family) Primary Care Physician Patient Instructions: COPD Including Emphysema (DC) Add. Discharge Instructions: CALL YOUR NEBULIZER COMPANY IN THE MORNING TO ARRANGE FOR REPLACEMENT, OR YOU MAY CALL DR. SULTANA FOR ASSISTANCE WITH THIS All discharge instructions reviewed with patient and/or family. Voiced understanding. CHRIS BULLOCK DO Jul 10, 2017 22:37
[2017-07-10 22:45] VITALS: BP 144/92
== END 2017-07-10 22:45 | disposition home or self-care (01) ==
LOC: EDUNIT# 22:12 → ER 22:13
DX: J44.9 Chronic obstructive pulmonary disease, unspecified (principal); I25.10 Atherosclerotic heart disease of native coronary artery without angina pectoris; E78.00 Pure hypercholesterolemia, unspecified; I25.2 Old myocardial infarction; Z86.73 Personal history of transient ischemic attack (TIA), and cerebral infarction without residual deficits; Z88.2 Allergy status to sulfonamides; Z88.1 Allergy status to other antibiotic agents; Z88.4 Allergy status to anesthetic agent; Z79.82 Long term (current) use of aspirin; Z87.891 Personal history of nicotine dependence; Z95.1 Presence of aortocoronary bypass graft; Z95.5 Presence of coronary angioplasty implant and graft; Z98.51 Tubal ligation status
CPT/HCPCS: 94640; 99282

== ENCOUNTER → 2018-01-23 | Outpatient (CLI) | payer MEDICARE, OTHER ==
[~2018-01-23] MED LIST changes: -IPRA3AMP IH; +IPRA3AMP31 IH
--- NOTE | 2018-01-23 11:38 | Diagnostic Imaging Report ---
INDICATION: Routine screening. Comparison is made with prior exam from 01/12/2016 and 10/29/2012. 2-D and 3-D bilateral screening mammography was performed with a Computer Aided Detection (CAD) system. FINDINGS: Both breasts are heterogeneously dense, limiting the sensitivity of mammography. Monitoring device overlies the medial left breast. A biopsy clip in the lateral portion of the left breast is again noted. There are numerous benign-appearing calcifications throughout both breasts. The parenchymal pattern appears to be stable. No spiculated mass or malignant appearing microcalcifications are seen. Axillae are unremarkable. IMPRESSION: No mammographic features suspicious for malignancy are identified. ACR BI-RADS Category 2: Benign findings. Result letter will be mailed to the patient. Note: At least 10% of breast cancer is not imaged by mammography. Dictated by: Dictated on workstation # [id number]
== END ==
LOC: RAD 09:39
PROVIDERS: ATTEND Obstetrics & Gynecology
DX: Z12.31 Encounter for screening mammogram for malignant neoplasm of breast (principal)
CPT/HCPCS: 77067

== ENCOUNTER → 2018-01-24 | Outpatient (CLI) | payer MEDICARE, OTHER ==
--- NOTE | 2018-01-24 15:13 | Diagnostic Imaging Report ---
PROCEDURE: CT abdomen and pelvis without contrast. TECHNIQUE: Multiple contiguous axial images were obtained through the abdomen and pelvis without the use of intravenous contrast. DATE: January 24, 2018. COMPARISON: December 17, 2016. INDICATION: 67-year-old female, hematuria. FINDINGS: There are limitations for evaluation of the abdominal organs, neoplastic processes, abscess, and limited evaluation of the vasculature relating to the lack of intravenous contrast. The visualized portions of the lung bases are clear. The heart is not enlarged. There is no identified pericardial effusion. The liver is normal in size and contour. The patient is status post cholecystectomy. There is no intrahepatic or extrahepatic bile duct dilation. There is an area of focal high attenuation projecting within the duodenal lumen near the duodenal insertion site of the common bile duct. This potentially may reflect enteric contents and does not appear to be positioned along the expected course of the common bile duct. Also, as mentioned above, there is no intrahepatic or extrahepatic bile duct dilation. The main pancreatic duct is not abnormally dilated. Limited noncontrast evaluation of the pancreatic parenchyma is unremarkable. The spleen is normal in size. The adrenal glands are unremarkable. There are vascular calcifications adjacent to both kidneys which are vascularly related. Noncontrast evaluation of the renal parenchyma is unremarkable. There is no renal or ureteral stone. Urinary bladder is underdistended and not well evaluated. Unremarkable appearance of the uterus and adnexa on CT assessment. The intestinal tract is not distended. The appendix is well seen on axial image 35 and adjacent sequential images. There is no evidence of acute appendicitis. There is no free intraperitoneal air. There is a fat-containing umbilical hernia. There is no drainable fluid collection. There is no free pelvic fluid. There are atherosclerotic calcifications. There is no identified abnormally enlarged lymph node within the abdomen or pelvis which meets CT size criteria for adenopathy. There are median sternotomy wires. There are multilevel degenerative changes of the spine. There is no identified acute bony abnormality. There is a lumbar dextrocurvature. IMPRESSION: CT ABDOMEN AND PELVIS: 1. No identified renal or ureteral stone. 2. No identified concerning renal mass on noncontrast assessment. 3. The urinary bladder is collapsed and not well evaluated. 4. No identified acute abnormality within the abdomen or pelvis. Dictated by: Dictated on workstation # [id number]
== END ==
LOC: RAD 14:27
PROVIDERS: ATTEND Urology
DX: R31.9 Hematuria, unspecified (principal)
CPT/HCPCS: 74176

== ENCOUNTER → 2018-11-19 | Outpatient (CLI) | payer MEDICARE, OTHER ==
[~2018-11-19] MED LIST changes: -HYDR-3454 PO; +HYDR-3455 PO
[2018-11-19 10:42] LABS: ABG BASE EXCESS 1.5 MMOL/L (-2.5-2.5); ABG OXYGEN SATURATION 98 % (94-100); ABG PCO2 37 MMHG (35-45); ABG PH 7.45 (7.37-7.43); ABG PO2 85 MMHG (79-93); ABG TCO2 26.4 MMOL/L (21.0-31.0)
[2018-11-19 10:43] LABS: ALLENS TEST YES-POS; INSPIRED O2 ROOM AIR; PATIENT TEMP 97.5; VENTILATOR NO
== END ==
LOC: PULM 09:41
PROVIDERS: ATTEND Nurse Practitioner Family
DX: R06.00 Dyspnea, unspecified (principal); J30.9 Allergic rhinitis, unspecified; R06.89 Other abnormalities of breathing; R05 Cough; J44.9 Chronic obstructive pulmonary disease, unspecified; Z87.891 Personal history of nicotine dependence
CPT/HCPCS: 36600; 82805

== ENCOUNTER → 2018-11-20 | Outpatient (CLI) | payer MEDICARE, OTHER | LOC: CARD 13:36 | PROVIDERS: ATTEND Internal Medicine Cardiovascular Disease | DX: I25.10 Atherosclerotic heart disease of native coronary artery without angina pectoris (principal); R07.9 Chest pain, unspecified; R06.09 Other forms of dyspnea; I10 Essential (primary) hypertension; E78.2 Mixed hyperlipidemia; I34.0 Nonrheumatic mitral (valve) insufficiency | CPT/HCPCS: 93306 ==

== ENCOUNTER 2019-01-06 12:23 | Outpatient (RCR) | payer MEDICARE, OTHER ==
[2019-01-14 08:00] VITALS: BP 130/80
[2019-01-14 09:16] VITALS: BP 120/60
[2019-01-16 08:00] VITALS: BP 130/70
[2019-01-16 09:14] VITALS: BP 150/60
[2019-01-21 08:00] VITALS: BP 120/64
[2019-01-21 09:15] VITALS: BP 120/70
[2019-02-04 08:05] VITALS: BP 100/60
[2019-02-04 09:00] VITALS: BP 112/70
[2019-02-06 08:30] VITALS: BP 118/50
[2019-02-06 09:30] VITALS: BP 120/70
== END 2019-04-06 | disposition home or self-care (01) ==
LOC: PULM 12:23
PROVIDERS: ATTEND Nurse Practitioner Family
DX: J44.9 Chronic obstructive pulmonary disease, unspecified (principal)
CPT/HCPCS: 99211

== ENCOUNTER → 2019-01-27 | Outpatient (CLI) | payer MEDICARE, OTHER ==
[~2019-01-27] MED LIST changes: +RT-ALBUTEROL SULF 2.5 MG/3 ML PRE-MIX VIAL INH ONE
== END ==
LOC: RT 14:50
PROVIDERS: ATTEND Nurse Practitioner Family
DX: J30.9 Allergic rhinitis, unspecified (principal); J44.9 Chronic obstructive pulmonary disease, unspecified; Z87.891 Personal history of nicotine dependence
CPT/HCPCS: 94060; 94726; 94729

== ENCOUNTER → 2019-02-13 | Outpatient (CLI) | payer MEDICARE, OTHER ==
[~2019-02-13] MED LIST changes: +HOLD METFORMIN - RECEIVED CONTRAST 20 ML VIAL IV SCH; +IOHEXOL 350 MG/ML 100 ML (OMNIPAQUE 350) VIAL IV ONE; +NS 100 ML (IVPB) BAG IV ONE; -RT-ALBUTEROL SULF 2.5 MG/3 ML PRE-MIX VIAL INH ONE
--- NOTE | 2019-02-13 11:27 | Diagnostic Imaging Report ---
PROCEDURE: CT chest with contrast only. TECHNIQUE: Multiple contiguous axial images were obtained through the chest after administration of intravenous contrast. Auto Exposure Controls were utilized during the CT exam to meet ALARA standards for radiation dose reduction. INDICATION: COPD and shortness of breath. Comparison is made with prior CT chest from 12/11/2014. FINDINGS: Monitoring device overlies the left chest. There are changes of median sternotomy and CABG. No axillary lymphadenopathy is detected. No definite hilar or mediastinal lymphadenopathy is detected. No pericardial or pleural fluid is identified. There is a circumscribed low-density nodule left lobe of the thyroid measuring 11 mm. Parenchymal evaluation shows some minimal subpleural interstitial changes in the right lower lobe laterally. Otherwise the lungs are clear. No parenchymal masses or nodules are seen. The upper abdomen is unremarkable. IMPRESSION: Essentially unremarkable CT of the chest with contrast when compared with exam from 12/11/2014. Minimal subpleural infiltrate or atelectasis right lower lobe is seen. No thoracic lymphadenopathy or chest effusion is detected. Dictated by: Dictated on workstation # [id number]
== END ==
LOC: RAD 07:47
PROVIDERS: ATTEND Nurse Practitioner Family
DX: J44.9 Chronic obstructive pulmonary disease, unspecified (principal); J30.9 Allergic rhinitis, unspecified; G47.36 Sleep related hypoventilation in conditions classified elsewhere; Z87.891 Personal history of nicotine dependence
CPT/HCPCS: 71260

== ENCOUNTER → 2019-02-17 | Outpatient (CLI) | payer MEDICARE, OTHER ==
[~2019-02-17] MED LIST changes: -HOLD METFORMIN - RECEIVED CONTRAST 20 ML VIAL IV SCH; -IOHEXOL 350 MG/ML 100 ML (OMNIPAQUE 350) VIAL IV ONE; -NS 100 ML (IVPB) BAG IV ONE
--- NOTE | 2019-02-17 12:50 | Diagnostic Imaging Report ---
INDICATION: Routine screening. COMPARISON: 01/23/2018 and 01/12/2016. TECHNIQUE: 2D and 3D bilateral screening mammography was performed with CAD. FINDINGS: Both breasts remain heterogeneously dense, limiting the sensitivity of mammography. Scattered benign-appearing calcifications are again noted. A biopsy marker clip in the left breast remains in place. A monitoring device overlies the left breast. No mass or malignant appearing microcalcifications are seen. The axillae are unremarkable. IMPRESSION: No mammographic features suspicious for malignancy are identified. ACR BI-RADS Category 2: Benign findings. Result letter will be mailed to the patient. Note: At least 10% of breast cancer is not imaged by mammography. Dictated by: Dictated on workstation # [id number]
== END ==
LOC: RAD 08:20
PROVIDERS: ATTEND Obstetrics & Gynecology
DX: Z12.31 Encounter for screening mammogram for malignant neoplasm of breast (principal); Z98.890 Other specified postprocedural states
CPT/HCPCS: 77067

== ENCOUNTER → 2019-02-17 | Outpatient (CLI) | payer MEDICARE, OTHER ==
--- NOTE | 2019-02-17 16:22 | Diagnostic Imaging Report ---
PROCEDURE: US right lower extremity venous. TECHNIQUE: Multiple Real-time grayscale images were obtained over the right lower extremity in various projections. Additional spectral analysis and color Doppler duplex images were also obtained. INDICATION: Right leg pain and swelling. FINDINGS: The veins have good color filling and compressibility. There is normal phasic flow and appropriate response to distal augmentation. IMPRESSION: Negative venous Doppler of the right leg. Dictated by: Dictated on workstation # [id number]
== END ==
LOC: RAD 15:32
PROVIDERS: ATTEND Internal Medicine
DX: R60.0 Localized edema (principal)

== ENCOUNTER → 2019-05-19 | Outpatient (CLI) | payer MEDICARE, OTHER ==
--- NOTE | 2019-05-19 17:07 | Diagnostic Imaging Report ---
EXAMINATION: Magnetic resonance imaging of the right knee without intravenous contrast DATE: May 19, 2019. COMPARISON: None. INDICATION: 68-year-old female, right knee pain. No known injury. TECHNIQUE: Multiplanar, multisequence non contrast enhanced MR imaging was accomplished. FINDINGS: MENISCI: There is an oblique tear involving the body and posterior horn of the medial meniscus extending to the region of the posterior root attachment. At the level of the posterior root attachment, there is a suspected radially oriented tear. There is medial meniscal extrusion measuring 6 mm. There is a longitudinal horizontal type tear involving the anterior horn, body, and posterior horn of the lateral meniscus. LIGAMENTS AND TENDONS: The anterior and posterior cruciate ligaments are intact. There is edema adjacent to the medial collateral ligament which may relate to the medial meniscal pathology. There is no identified tear of the superficial component of the medial collateral ligament complex. The iliotibial band, mid third lateral capsular ligament, fibular collateral ligament, biceps femoris tendon and conjoined tendon are intact. The quadriceps tendon and patella ligament are intact. JOINT: There is approximately 50-75% cartilage loss involving the lateral aspect of the medial patellar facet with adjacent fissures of the cartilage. There is a 50% thickness cartilage fissure involving the very medial margin of the lateral patella facet cartilage best illustrated on axial T2 fat saturation sequence image 8. There is approximately 75% generalized thinning of the cartilage of the medial compartment. There is a small to moderate knee joint effusion. There is an intra-articular body posteriorly best seen on coronal STIR sequence image 8 measuring 4 x 4 mm in size. BONE: There is degenerative related marrow edema adjacent to the medial compartment. There is no acute fracture, bone contusion, or evidence of osteonecrosis. BURSAE AND SOFT TISSUES: There is nonspecific prepatellar subcutaneous edema. There is fluid in the popliteus tendon sheath. There is a multiloculated ganglion cyst near the femoral attachment side of the lateral head of gastrocnemius which measures 1.5 x 1.7 x 2.1 cm in size. IMPRESSION: 1. Extensive tear of the medial meniscus with medial meniscal extrusion. 2. Longitudinal horizontal type tear involving the entire lateral meniscus. 3. Intact anterior and posterior cruciate ligaments. 4. 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 Jsaui-zw-oqnuqlcx knee joint effusion with intra-articular body posteriorly measuring 4 x 4 mm in size. 5. No acute fracture, bone contusion, or evidence of osteonecrosis. Dictated by: Dictated on workstation # [id number]
== END ==
LOC: RAD 15:17
PROVIDERS: ATTEND Internal Medicine
DX: S83.241A Other tear of medial meniscus, current injury, right knee, initial encounter (principal); K21.9 Gastro-esophageal reflux disease without esophagitis; M17.11 Unilateral primary osteoarthritis, right knee; M25.461 Effusion, right knee
CPT/HCPCS: 73721

== ENCOUNTER → 2019-11-12 | Outpatient (CLI) | payer MEDICARE, OTHER ==
[~2019-11-12] VITALS: Ht 148 cm; Wt 87.0 kg
[~2019-11-12] MED LIST changes: +CATHETER FLUSH 10 ML SYR IV PRN; +REGADENOSON 0.4 MG/5 ML SYR (LEXISCAN) IV ONE
[2019-11-12 14:50] VITALS: BP 140/67
--- NOTE | 2019-11-12 14:50 | Cardiology Stress Test Report ---
Stress Test Report Date of Procedure/Referring: Date of Procedure: Nov 12, 2019 PCP Padmini Shah Admitting Physician Claude Monet DO Indications: CAD Baseline Heart Rate: 70 Baseline Blood Pressure: Blood Pressure Systolic: 140 Blood Pressure Diastolic: 67 Baseline EKG: Baseline EKG: NSR Summary: Patient received 0.4 mg Lexiscan for stress test, ECG, heart rate and blood p ressure were monitored continuously. Resting and stress dose of radio tracer were injected, imaging was acquired and reviewed in short axis, horizontal long axis and vertical long axis views. Conclusion: 1. Patient tolerated Lexiscan well. 2. Mild decreased uptake involving the mid to apical anterior wall with mild reversibility SSS is 3, SDS 3 3. Normal left ventricular size and systolic function estimated ejection fraction 60 percent PHAN MALONE MD Nov 12, 2019 14:50
== END ==
LOC: CARD 07:11
PROVIDERS: ATTEND Physician Assistant
DX: I25.10 Atherosclerotic heart disease of native coronary artery without angina pectoris (principal); J44.9 Chronic obstructive pulmonary disease, unspecified; I10 Essential (primary) hypertension; E78.2 Mixed hyperlipidemia
CPT/HCPCS: 78452; 93017

== ENCOUNTER 2020-02-02 12:56 | Outpatient (CLI) | payer MEDICARE, OTHER ==
[~2020-02-02] VITALS: Ht 149.9 cm; Wt 85.7 kg
[~2020-02-02 12:56] MED LIST changes: -CATHETER FLUSH 10 ML SYR IV PRN; -REGADENOSON 0.4 MG/5 ML SYR (LEXISCAN) IV ONE
[2020-02-02 13:07] VITALS: BP 140/72
[2020-02-02 14:27] LABS: CALCIUM 9.9 MG/DL (8.5-10.1); CREATININE SERUM 0.95 MG/DL (0.60-1.30); POTASSIUM 3.9 MMOL/L (3.6-5.0)
[2020-02-02] MEDS ORDERED: POTA10CA43 PO (14:43)
[2020-02-02] MEDS ORDERED: CHOL500044 PO (14:43)
[2020-02-02] MEDS ORDERED: OMEG100032 PO (14:43)
[2020-02-02] MEDS ORDERED: EZET10TA49 PO (14:43)
[2020-02-02] MEDS ORDERED: FAMO20TA5 PO (14:43)
[2020-02-02] MEDS ORDERED: RT-ALBUINH IH (14:43)
[2020-02-02] MEDS ORDERED: FURO-125 PO (14:43)
[2020-02-02] MEDS ORDERED: FEXO-46 PO (14:43)
[2020-02-02] MEDS ORDERED: FLUT1BLS3 IH (14:43)
== END 2020-02-02 14:00 | disposition home or self-care (01) ==
LOC: PREOP 12:56
PROVIDERS: ATTEND Orthopaedic Surgery
DX: Z01.818 Encounter for other preprocedural examination (principal); S83.241A Other tear of medial meniscus, current injury, right knee, initial encounter
CPT/HCPCS: 36415; 80048; 87081

== ENCOUNTER 2020-02-04 06:08 | Day surgery (SDC) | payer MEDICARE, OTHER ==
--- NOTE | 2020-01-23 11:43 | HISTORY AND PHYSICAL ---
DATE OF SERVICE: ADMISSION HISTORY AND PHYSICAL DATE OF ADMISSION: 02/04/2020. This will be for the outpatient surgery on 02/04/2020 for right knee arthroscopy. HISTORY OF PRESENT ILLNESS: The patient is a 69-year-old female with progressively worsening right knee pain, swelling and catching and locking. She has been unable to exercise, has difficulty with activities of daily living due to her knee. She has tried steroid injections without relief. Due to functional impairment and failure to improve with conservative measures, the patient elected to proceed with surgical intervention. REVIEW OF SYSTEMS: No chest pain, no shortness of breath and no dysuria. PAST MEDICAL HISTORY: COPD, coronary artery disease, ischemic cardiomyopathy, history of myocardial infarction, hyperlipidemia, hypothyroidism and atrial fibrillation. PAST SURGICAL HISTORY: EGD, tubal ligation, coronary artery bypass and cleft palate repair. FAMILY HISTORY: Significant for cardiovascular disease and hypertension. PRIMARY CARE PROVIDER: Dr. Monet. MEDICATIONS: Pantoprazole, Synthroid, Ipratropium, albuterol, ezetimibe, famotidine, omega, Protonix and aspirin. ALLERGIES: SULFA, TETRACYCLINE, ZITHROMAX and AZITHROMYCIN. SOCIAL HISTORY: The patient denies alcohol, tobacco use. PHYSICAL EXAMINATION: GENERAL: The patient is well-developed, well-nourished, in no acute distress. HEENT: Normocephalic and atraumatic. Pupils are equal, round, reactive to light. Oropharynx is clear. NECK: Supple, no lymphadenopathy. LUNGS: Clear to auscultation bilaterally. HEART: Regular rate and rhythm. ABDOMEN: Soft, nontender and nondistended. EXTREMITIES: The right knee demonstrates moderate effusion. She is tender along the medial joint line. She has pain medially with Miguel Ángel's, range of motion 0/2/120. No varus valgus laxity. Negative anterior and posterior drawer. Radiographs views revealed some significant degenerative changes in her right knee. The patient was counseled that an arthroscopy would not help with her arthritic symptoms, but could help with her mechanical symptoms. She understands risks, benefits, options, ramifications and recovery for right knee arthroscopy, partial medial meniscectomy and chondroplasty. Job ID: [id number] DocumentID: [id number] Dictated Date: 01/23/2020 10:54:36 Earth Science Technical Officer Date: 01/23/2020 11:43:06 Dictated By: BELEN JACQUES MD
[2020-02-04] VITALS (12 sets, daily range): BP systolic 129–156; BP diastolic 48–78
[~2020-02-04] VITALS: Ht 149.9 cm; Wt 85.7 kg
[~2020-02-04 06:08] MED LIST changes: +CHOL500044 PO; +EZET10TA49 PO; +FAMO20TA5 PO; +FEXO-46 PO; +FLUT1BLS3 IH; +FURO-125 PO; +OMEG100032 PO; +POTA10CA43 PO; +RT-ALBUINH IH
[2020-02-04] MEDS ORDERED: LACTATED RINGERS 1,000 ML IV PRN (06:21)
[2020-02-04] MEDS ORDERED: ceFAZolin INJECTION 1,000 MG in WATER (STERILE) FOR INJECTION 10 ML IV ONE (06:30)
[2020-02-04] MEDS ORDERED: LIDOCAINE PF 2% 5 ML (XYLOCAINE) VIAL ONE (06:38)
[2020-02-04] MEDS ORDERED: MIDAZOLAM 2 MG/2 ML (VERSED) VIAL ONE (06:38)
[2020-02-04] MEDS ORDERED: ONDANSETRON 4 MG/2 ML (SDV) Z0FRAN ONE (06:38)
[2020-02-04] MEDS ORDERED: fentaNYL INJECTION 100 MCG/2 ML AMP ONE (06:38)
[2020-02-04] MEDS ORDERED: proPOfol 200 MG/20 ML (DIPRIVAN) VIAL IV ONE (06:38)
[2020-02-04] MEDS ORDERED: FAMOTIDINE 20MG/2ML IV (PEPCID) IV ONE (06:45)
[2020-02-04] MEDS ORDERED: morphine PF (DURAMORPH) 10 MG/10 ML AMP ONE (07:15)
[2020-02-04] MEDS ORDERED: BUPIVACAINE 0.25% 30 ML (SENSORCAINE) VIAL ONE (07:15)
[2020-02-04] MEDS ORDERED: HYDROcodone/APAP 7.5 MG/325 MG (LORTAB, LORCET PLUS) TABLET PO PRN (07:30)
--- NOTE | 2020-02-04 07:34 | Progress Note-Pre Operative ---
Pre-Operative Progress Note H&P Reviewed The H&P was reviewed, patient examined and no changes noted. Date Seen by Provider: Feb 04, 2020 Time Seen by Provider: 07:25 Date H&P Reviewed: Feb 04, 2020 Time H&P Reviewed: 07:11 Pre-Operative Diagnosis: right knee medial meniscus tear and chondromalacia BELEN JACQUES MD Feb 04, 2020 07:34
--- NOTE | 2020-02-04 07:35 | Progress Note-Post Operative ---
Post-Operative Progess Note Surgeon (s)/Bricklayer Sewer (s) Surgeon BELEN JACQUES MD Bricklayer Sewer: Adrián Biswas Pre-Operative Diagnosis right knee medial meniscus tear and chondromalacia Post-Operative Diagnosis right knee medial meniscus tear and chondromalacia of the medial and lateral femoral condyles and patella Procedure & Operative Findings Date of Procedure 02/04/20 Procedure Performed/Findings right knee arthroscopic partial medial meniscectomy and chondroplasty of the me dial and lateral femoral condyles and patella Anesthesia Type GETA Estimated Blood Loss Estimated blood loss (mL): minimal Specimens/Packing Specimens Removed none Packing: none BELEN JACQUES MD Feb 04, 2020 07:35
[2020-02-04] MEDS ORDERED: SEVOFLURANE (ULTANE) 15 ML INHAL SOLN ONE ×2 (08:09)
[2020-02-04] MEDS ORDERED: fentaNYL INJECTION 100 MCG/2 ML AMP IVP ONE (08:30)
[2020-02-04] MEDS ORDERED: morphine INJ 10 MG/ML 1ML (SYR OR VIAL) IVP ONE (08:30)
[2020-02-04] MEDS ORDERED: ONDANSETRON 4 MG/2 ML (SDV) Z0FRAN IVP PRN (08:30)
--- NOTE | 2020-02-04 09:15 | Anesthesia-General Post-Op ---
General Patient Condition Mental Status/LOC: Same as Preop Cardiovascular: Satisfactory Nausea/Vomiting: Absent Respiratory: Satisfactory Pain: Controlled Complications: Absent Post Op Complications Complications None Follow Up Care/Instructions Patient Instructions None needed. Anesthesia/Patient Condition Patient Condition Patient is doing well, no complaints, stable vital signs, no apparent adverse anesthesia problems. No complications reported per nursing. ERIBERTO FULTON CRNA Feb 04, 2020 09:15
[2020-02-04] MEDS ORDERED: HYDR-3817 PO (09:48)
--- NOTE | 2020-02-04 10:47 | Physical Therapy Ortho Eval ---
PT Orthopedic Evaluation Type of Surgery Knee Scope (right partial menisectomy) Prior Level of Function Current Living Status: Other Family (daughter) Locomotion (Upon Admit): Front Wheeled Walker Established Durable Medical Eq: Front Wheeled Walker, Straight Cane Subjective Subjective Agrees to PT. Daughter present and reports she will be with the patient at d ischarge. Entry Into Home: Stairs With Railing Motor Control Motor Control: Motor Control WNL ROM ROM: WFL Strength Strength: WFL Transfer Transfers (B, C, W/C) (FIM): 4 (SBA due to being groggy; daughter will be present at discharge. ) Gait Gait Assistive Device: FWW Right Lower Extremity: Right Weight Bearing Status RLE: Weight Bearing/Tolerated Left Lower Extremity: Left Weight Bearing Status LLE: Full Weight Bearing Gait (FIM): 4 (SBA for safety. ) Distance (FIM): 2=613-29 ft Gait Level of Assist: 4 Summary/Comments Gait training with FWW; safe with use of AD; up/down a curb step with SBA with cues for sequencing. Pt's daughter present and able to follow and instruct at home. Treatment Rendered Treatment: Therapeutic Exercises, Gait Train, Step Train Exercise Instruction: Quad Sets, Straight Leg Raise, Heel Slides Daughter educated on HEP and verbalized understanding. Assessment/Goals Goal Time Frame: 1 Visit Understands HEP: Yes Safe Ambulation: Yes Pt groggy from anesthesia; follows cues and participates. However, daughter present and able to retain all necessary information. She reports she typically assists with her mother's needs and feels comfortable. Plan Treatment Plan: Discharge Time Time In: 1010 Time Out: 1044 Total Billed Treatment Time: 24 Billed Treatment Time visit EVM 24 TOM MARIE PT Feb 04, 2020 10:47
--- NOTE | 2020-02-04 18:23 | OPERATIVE REPORT ---
DATE OF SERVICE: 02/04/2020 PREOPERATIVE DIAGNOSES: 1. Right knee medial meniscus tear. 2. Right knee chondromalacia of the medial femoral condyle. 3. Right knee chondromalacia of patella. POSTOPERATIVE DIAGNOSES: 1. Right knee medial meniscus tear. 2. Right knee lateral meniscus tear. 3. Right knee chondromalacia of the medial femoral condyle. 4. Right knee chondromalacia of the lateral femoral condyle. 5. Right knee chondromalacia of the patella. PROCEDURES: 1. Right knee arthroscopic partial medial meniscectomy. 2. Right knee arthroscopic partial lateral meniscectomy. 3. Right knee arthroscopic chondroplasty of the medial femoral condyle. 4. Right knee arthroscopic chondroplasty of the lateral femoral condyle. 5. Right knee arthroscopic chondroplasty of the patella. SURGEON: Jeremias Jacques MD ACCOUNTING REPRESENTATIVE: Adrián Biswas, who assisted throughout the procedure and closed the incisions. ANESTHESIA: General endotracheal by Adelaide Kendall CRNA. TOURNIQUET TIME: Not applicable. ESTIMATED BLOOD LOSS: Minimal. DRAINS: None. COMPLICATIONS: None. POSTOPERATIVE PLAN: Routine arthroscopy protocol. The patient was transferred to the recovery room in awake and stable condition. STATEMENT OF MEDICAL NECESSITY: The patient is a 69-year-old female with complaints of right knee pain, catching, locking and swelling. Radiographs revealed medial and patellofemoral arthrosis. The patient was counseled that an arthroscopy could help with her mechanical symptoms, but would not alleviate her arthritic symptoms. Due to functional impairment and failure to improve with conservative measures, the patient elected to proceed with surgical intervention. Examination under anesthesia revealed range of motion 0/0/130 with negative Janina, negative anterior and posterior drawer and negative pivot shift, no varus valgus laxity. ARTHROSCOPIC FINDINGS: The patella demonstrated grade II chondral flaps inferiorly in a 10 x 10 area. The trochlea demonstrated no significant chondral abnormalities. Medial and lateral gutters were clear. The ACL and PCL were intact. Lateral compartment demonstrated grade III chondral flap centrally over the femoral condyle in 10 x 10 area with a flap tear of the body of the lateral meniscus involving approximately 20% of the body of the medial compartment demonstrated grade IV chondral loss over the tibial plateau in a 8 x 8 area with grade III chondral flap centrally over the femoral condyle in a 15 x 15 area and a horizontal cleavage tear of the posterior horn of the medial meniscus involving approximately one-third of the posterior horn. DESCRIPTION OF PROCEDURE: After risks and benefits of procedure were discussed and questions were answered and informed consent was signed and placed on chart, the operative site was confirmed in the preoperative holding area initialed by the surgeon. The patient was transferred to the operating room and after adequate levels of general endotracheal anesthetic were obtained, a timeout was called, confirming the operative site. Examination under anesthesia was performed with above findings noted. The right lower extremity was prepped and draped in the usual sterile fashion. The knee joint was injected with 60 mL of fluid and standard inferolateral portals placed with arthroscope under direct visualization, inferior medial portal was created, the menisci and cruciates carefully probed with the above findings noted. Then, stable chondral flaps on the patella were debrided with shaver back to a stable edge. Scope was redirected into the medial compartment and unstable chondral flaps of the medial femoral condyle were debrided back to a stable edge and the posterior horn of the medial meniscus was debrided with a biter, and shaver removing approximately one-third of the posterior horn. This was carefully probed with no further tearing or instability noted. Scope was redirected into the lateral compartment of the knee, the unstable lateral meniscus tear was debrided with shaver back to a stable edge. Then, stable chondral flaps in lateral femoral condyle were debrided with shaver back to a stable edge. The knee was copiously irrigated. The port sites were closed with 4-0 nylon in simple interrupted fashion. Knee was injected with Duramorph. Port sites were infiltrated with plain Marcaine and soft dressing was applied. The patient was transferred to the recovery room awake and in stable condition. Job ID: [id number] DocumentID: [id number] Dictated Date: 02/04/2020 08:12:33 Drug Abuse Worker Date: 02/04/2020 18:23:03 Dictated By: JEREMIAS JACQUES MD
== END 2020-02-04 11:20 | disposition home or self-care (01) ==
LOC: SDC 06:08
PROVIDERS: ATTEND Orthopaedic Surgery
DX: M23.221 Derangement of posterior horn of medial meniscus due to old tear or injury, right knee (principal); M23.200 Derangement of unspecified lateral meniscus due to old tear or injury, right knee; M22.41 Chondromalacia patellae, right knee; J44.9 Chronic obstructive pulmonary disease, unspecified; I25.10 Atherosclerotic heart disease of native coronary artery without angina pectoris; E78.5 Hyperlipidemia, unspecified; E03.9 Hypothyroidism, unspecified; I48.91 Unspecified atrial fibrillation; I25.5 Ischemic cardiomyopathy; Z95.1 Presence of aortocoronary bypass graft; Z98.51 Tubal ligation status; Z79.890 Hormone replacement therapy; Z79.82 Long term (current) use of aspirin; Z79.899 Other long term (current) drug therapy; Z88.2 Allergy status to sulfonamides; Z88.1 Allergy status to other antibiotic agents

== ENCOUNTER → 2020-03-04 | Outpatient (CLI) | payer MEDICARE, OTHER ==
[~2020-03-04] MED LIST changes: +ASPI-1238 PO; -ASPI-983 PO; +HYDR-3817 PO
--- NOTE | 2020-03-04 14:33 | Diagnostic Imaging Report ---
CT Lung Screening INDICATION: 33 pack-year smoking history TECHNIQUE: Noncontrast, low-dose CT imaging performed according to the lung cancer screening protocol. Auto Exposure Controls were utilize during the CT exam to meet ALARA standards for radiation dose reduction. COMPARISON: 02/13/2019 FINDINGS: The previous exam of 02/13/2019 failed to show any sign of malignancy or for an acute abnormality. On this exam, there is still no parenchymal lung mass identified to suggest malignancy. There is a linear 5 mm opacity in the right upper lung (image 87 of 207). This is only seen on the axial series and consequently is more likely due to volume averaging than to a parenchymal abnormality. The subpleural alveolar/interstitial infiltrate along the periphery of the right lung noted previously is again evident and not significantly changed. Consequently, most likely, this finding is chronic in nature. There is no sign of failure, pneumonia or of a pleural effusion to indicate an acute abnormality. The heart size is stable. Coronary artery calcifications are again noted. The aorta is not abnormally dilated. The 11 mm low density nodule in the inferior pole of the left lobe of the thyroid seen previously is not as well visualized on this exam. As on the prior study, the left lobe does seem much more prominent than the right lobe. If further evaluation of the thyroid gland is desired, then ultrasound would be recommended. There is no obvious breast mass. The loop recorder device in the soft tissues of the left thorax seen previously is again evident and no different. The sections through the upper abdomen failed to show any sign of an acute abnormality. The gallbladder is surgically absent. The bone windows show no fracture or destructive lesion. Sternotomy wires and surgical clips are again seen. IMPRESSION: 1. There is still no evidence for a parenchymal lung mass to suggest malignancy. A follow-up low-dose lung cancer screening exam in one year would be recommended for continued evaluation however. 2. The alveolar/interstitial infiltrate along the periphery of the right lung seen previously appears stable. Most likely this finding is chronic in nature. There is no acute abnormality identified. 3. There is mild cardiomegaly, coronary artery disease and evidence of prior cardiac surgery. LUNG-RADS CATEGORY:1 MODIFIER: OTHER SIGNIFICANT FINDINGS: Dictated by: Dictated on workstation # [id number]
== END ==
LOC: RAD 13:45
PROVIDERS: ATTEND Nurse Practitioner Family
DX: Z12.2 Encounter for screening for malignant neoplasm of respiratory organs (principal); I51.7 Cardiomegaly; I25.10 Atherosclerotic heart disease of native coronary artery without angina pectoris; Z87.891 Personal history of nicotine dependence

== ENCOUNTER → 2020-10-19 | Outpatient (CLI) | payer MEDICARE, OTHER ==
--- NOTE | 2020-10-19 13:09 | Diagnostic Imaging Report ---
INDICATION: Routine screening. Comparison is made with prior mammogram 02/17/2019 and 01/23/2018. 2-D and 3-D bilateral screening mammography was performed with CAD. Both breasts are heterogeneously dense, limiting the sensitivity of mammography. Cardiac monitoring device overlies the medial left breast. Biopsy marker clip in the outer left breast is again noted. There are scattered benign calcifications bilaterally. No mass or malignant appearing microcalcifications are seen. Axillae are unremarkable. IMPRESSION: BI-RADS Category 2 No mammographic features suspicious for malignancy are identified. ACR BI-RADS Category 2: Benign findings. Result letter will be mailed to the patient. Note: At least 10% of breast cancer is not imaged by mammography. Dictated by: Dictated on workstation # [id number]
== END ==
LOC: RAD 08:15
PROVIDERS: ATTEND Obstetrics & Gynecology
DX: Z12.31 Encounter for screening mammogram for malignant neoplasm of breast (principal)
CPT/HCPCS: 77063; 77067

== ENCOUNTER → 2020-12-07 | Outpatient (CLI) | payer MEDICARE, OTHER | LOC: CARD 14:01 | PROVIDERS: ATTEND Physician Assistant | DX: I34.0 Nonrheumatic mitral (valve) insufficiency (principal); I11.9 Hypertensive heart disease without heart failure; I25.10 Atherosclerotic heart disease of native coronary artery without angina pectoris | CPT/HCPCS: 93306 ==

== ENCOUNTER → 2021-03-07 | Outpatient (CLI) | payer MEDICARE, OTHER ==
--- NOTE | 2021-03-07 12:20 | Diagnostic Imaging Report ---
EXAMINATION: CT Lung Screening. INDICATION: 33 pack year smoking history, cessation 6 years ago. TECHNIQUE: Noncontrast, low-dose CT imaging performed according to the lung cancer screening protocol. Auto Exposure Controls were utilize during the CT exam to meet ALARA standards for radiation dose reduction. COMPARISON: 03/04/2020. FINDINGS: Chronic subpleural scarring in the right greater than left lung parenchyma peripherally is an unchanged finding. No lung mass or suspicious pulmonary nodule. No findings suggestive of lung cancer. No evidence for adenopathy. There is heavy coronary artery atherosclerosis. The aorta is nonaneurysmal. There has been previous sternotomy without dehiscence or other acute chest wall pathology. No chest effusion. The visualized upper abdomen is nonacute. IMPRESSION: No evidence for active lung cancer. Continued low-dose CT screening followup in 1 year is recommended. LUNG-RADS CATEGORY:Category 1. MODIFIER:None. OTHER SIGNIFICANT FINDINGS:COPD and coronary atherosclerotic vascular calcifications as well as some chronic subpleural interstitial scarring. Dictated by: Dictated on workstation # [id number]
== END ==
LOC: RAD 10:23
PROVIDERS: ATTEND Nurse Practitioner Family
DX: Z12.2 Encounter for screening for malignant neoplasm of respiratory organs (principal); Z87.891 Personal history of nicotine dependence
CPT/HCPCS: 71271

== ENCOUNTER 2021-05-19 11:17 | Outpatient (RCR) | payer MEDICARE, OTHER | END 2021-05-24 16:14 | disposition home or self-care (01) | PROVIDERS: ATTEND Nurse Practitioner Family | DX: J44.9 Chronic obstructive pulmonary disease, unspecified (principal); R53.1 Weakness ==

== ENCOUNTER → 2021-06-20 | Outpatient (CLI) | payer MEDICARE, OTHER ==
--- NOTE | 2021-06-20 17:18 | Diagnostic Imaging Report ---
INDICATION: Right foot pain COMPARISON: None available TECHNIQUE: 3 radiographs of the right foot dated 06/20/2021 FINDINGS: No acute fracture or dislocation. No destructive osseous process. Minimal scattered degenerative changes for age are identified, greatest involving the 1st MTP joint. The Lisfranc joint is well aligned. No significant calcaneal enthesophyte. No evidence of tarsal coalition. No suspicious radiopaque foreign body. IMPRESSION: No acute osseous abnormality with minimal degenerative changes for age. Dictated by: Dictated on workstation # [id number]
== END ==
LOC: RAD 15:40
PROVIDERS: ATTEND Internal Medicine
DX: M79.671 Pain in right foot (principal); M79.672 Pain in left foot
CPT/HCPCS: 73630

== ENCOUNTER → 2021-07-27 | Outpatient (CLI) | payer MEDICARE, OTHER ==
[~2021-07-27] VITALS: Ht 147 cm; Wt 90.0 kg
[~2021-07-27] MED LIST changes: +CATHETER FLUSH 10 ML SYR IV PRN; +REGADENOSON 0.4 MG/5 ML SYR (LEXISCAN) IV ONE
[2021-07-27 12:57] VITALS: BP 129/63
--- NOTE | 2021-07-28 08:04 | Cardiology Stress Test Report ---
Stress Test Report Date of Procedure/Referring: Date of Procedure: Jul 27, 2021 PCP Phan Cross MD Admitting Physician Radha Groves Aprn Indications: HTN Baseline Heart Rate: 69 Baseline Blood Pressure: Blood Pressure Systolic: 129 Blood Pressure Diastolic: 63 Baseline Vitals Vital Signs Date Time Temp Pulse Resp B/P (MAP) Pulse Ox O2 Delivery O2 Flow Rate FiO2 07/27/21 12:57 69 129/63 (85) Baseline EKG: Baseline EKG: NSR Summary After explaining the procedure to the patient, she signed a consent and then brought to the stress nuclear laboratory. Patient received 0.4 mg Lexiscan for stress test, ECG, heart rate and blood pressure were monitored continuously. Resting and stress dose of radio tracer were injected, imaging was acquired and reviewed in short axis, horizontal long axis and vertical long axis views. TID: 1.1 SSS: 0 SDS: 0 EF: 54 1. Patient tolerated Lexiscan well 2. No significant ischemia or infarction on SPECT images 3. Normal left ventricular size, EF 54% PHAN CROSS MD Jul 28, 2021 08:04
== END ==
LOC: CARD 10:30
PROVIDERS: ATTEND Internal Medicine Cardiovascular Disease
DX: I10 Essential (primary) hypertension (principal); I25.10 Atherosclerotic heart disease of native coronary artery without angina pectoris
CPT/HCPCS: 78452; 93017; 93306; A9502

== ENCOUNTER → 2021-10-26 | Outpatient (CLI) | payer MEDICARE, OTHER ==
[~2021-10-26] MED LIST changes: -CATHETER FLUSH 10 ML SYR IV PRN; -FEXO-46 PO; +NF-ALLE180 PO; -REGADENOSON 0.4 MG/5 ML SYR (LEXISCAN) IV ONE; +RT-ALBUTEROL SULF 2.5 MG/3 ML PRE-MIX VIAL INH ONE
--- NOTE | 2021-10-26 09:20 | Diagnostic Imaging Report ---
INDICATION: COPD, UNSPECIFIED BACTERIAL PNEUMONIA. TECHNIQUE: Two view chest 8:59 AM CORRELATION STUDY: 08/11/2015 FINDINGS: Surgical changes sternotomy. Loop recorder device is also present over the central aspect of the lower chest. Heart size, mediastinum and vasculature overall within normal limits. The lungs are clear with no consolidating infiltrate. There is no significant pleural effusion or pneumothorax. Mildly advanced degenerative changes thoracic spine. Rather prominent calcification the abdominal aorta. Surgical clips in the upper abdomen. IMPRESSION: 1. Negative for acute abnormality of the chest. Poststernotomy changes. Dictated by: Dictated on workstation # [id number]
== END ==
LOC: RT 08:00
PROVIDERS: ATTEND Internal Medicine Critical Care Medicine
DX: J44.9 Chronic obstructive pulmonary disease, unspecified (principal); J15.9 Unspecified bacterial pneumonia; Z98.890 Other specified postprocedural states
CPT/HCPCS: 71046; 94060; 94726; 94729

== ENCOUNTER 2021-11-04 10:44 | Outpatient (RCR) | payer MEDICARE, OTHER ==
[~2021-11-04 10:44] MED LIST changes: -RT-ALBUTEROL SULF 2.5 MG/3 ML PRE-MIX VIAL INH ONE
== END 2021-11-08 | disposition home or self-care (01) ==
PROVIDERS: ATTEND Internal Medicine
DX: J44.9 Chronic obstructive pulmonary disease, unspecified (principal); I25.10 Atherosclerotic heart disease of native coronary artery without angina pectoris; I95.9 Hypotension, unspecified; Z86.73 Personal history of transient ischemic attack (TIA), and cerebral infarction without residual deficits

== ENCOUNTER 2021-11-24 11:19 | Outpatient (RCR) | payer MEDICARE, OTHER | END 2021-12-08 | disposition home or self-care (01) | PROVIDERS: ATTEND Internal Medicine | DX: J44.9 Chronic obstructive pulmonary disease, unspecified (principal); I25.10 Atherosclerotic heart disease of native coronary artery without angina pectoris; I95.9 Hypotension, unspecified; Z86.73 Personal history of transient ischemic attack (TIA), and cerebral infarction without residual deficits ==

== ENCOUNTER → 2022-05-10 | Outpatient (RCR) | payer MEDICARE, OTHER ==
[~2022-05-10] MED LIST changes: +ALBU8.5H6 IH; -RT-ALBUINH IH
== END | disposition still patient (30) ==
PROVIDERS: ATTEND Internal Medicine
DX: J44.9 Chronic obstructive pulmonary disease, unspecified (principal)

== ENCOUNTER 2022-05-18 10:38 | Outpatient (RCR) | payer MEDICARE, OTHER | END 2022-06-10 | disposition home or self-care (01) | PROVIDERS: ATTEND Internal Medicine | DX: J44.9 Chronic obstructive pulmonary disease, unspecified (principal); I25.10 Atherosclerotic heart disease of native coronary artery without angina pectoris; E11.9 Type 2 diabetes mellitus without complications ==

== ENCOUNTER → 2022-07-03 | Outpatient (CLI) | payer MEDICARE, OTHER ==
[~2022-07-03] MED LIST changes: -POTA10CA43 PO; +POTA10CA44 PO; +RT-ALBUTEROL SULF 2.5 MG/3 ML PRE-MIX VIAL INH ONE
== END ==
LOC: RT 14:15
PROVIDERS: ATTEND Internal Medicine Critical Care Medicine
DX: J44.9 Chronic obstructive pulmonary disease, unspecified (principal)
CPT/HCPCS: 94060; 94726; 94729

== ENCOUNTER → 2022-08-14 | Outpatient (CLI) | payer MEDICARE, OTHER ==
[~2022-08-14] MED LIST changes: -RT-ALBUTEROL SULF 2.5 MG/3 ML PRE-MIX VIAL INH ONE
--- NOTE | 2022-08-14 12:26 | Diagnostic Imaging Report ---
INDICATION: Routine screening. COMPARISON: 10/19/2020 and 02/17/2019. TECHNIQUE: 2D and 3D bilateral screening mammography was performed with CAD. FINDINGS: Both breasts are heterogeneously dense, limiting the sensitivity of mammography. A cardiac loop recorder overlies the medial left breast soft tissues. A marker clip in the outer left breast is again noted. There are scattered benign calcifications throughout both breasts. No dominant mass or malignant appearing microcalcifications are identified. The axillae are unremarkable. IMPRESSION: No mammographic features suspicious for malignancy are identified. ACR BI-RADS Category 2: Benign findings. Result letter will be mailed to the patient. Note: At least 10% of breast cancer is not imaged by mammography. Dictated by: Dictated on workstation # [id number]
== END ==
LOC: RAD 09:23
PROVIDERS: ATTEND Nurse Practitioner Women's Health
DX: Z12.31 Encounter for screening mammogram for malignant neoplasm of breast (principal)
CPT/HCPCS: 77063; 77067